=== PATIENT | male | born 1995 | race Caucasian/White ===

== ENCOUNTER → 2020-04-21 15:19 | Outpatient (BNVA) | payer OTHER, SELFPAY | PROVIDERS: Visit Provider Nurse Practitioner | DX: N39.0 Urinary tract infection, site not specified (principal); R30.0 Dysuria; Z20.2 Contact with and (suspected) exposure to infections with a predominantly sexual mode of transmission | CPT/HCPCS: 81000; 87086; 87491; 87591 ==

== ENCOUNTER → 2020-07-14 13:44 | Outpatient (BNVA) | payer OTHER, SELFPAY | PROVIDERS: Visit Provider Emergency Medicine | DX: Z20.2 Contact with and (suspected) exposure to infections with a predominantly sexual mode of transmission (principal); A74.9 Chlamydial infection, unspecified; R30.0 Dysuria | CPT/HCPCS: 81000; 87086 ==

== ENCOUNTER 2021-02-02 13:35 | Outpatient (CLI) | payer OTHER, SELFPAY ==
--- NOTE | 2021-02-02 13:48 | XRR_ITS ---
PROCEDURE INFORMATION: Exam: XR Right Foot Exam date and time: 02/02/2021 1:49 PM Age: 26 years old Clinical indication: Injury or trauma; Other: Dropped wash machine on it; Blunt trauma; Right; Patient HX: PT dropped wash machine on foot, no surgeries, no cancer, no smoking; Additional info: Right foot pain TECHNIQUE: Imaging protocol: XR Right foot. Views: 3 or more views. COMPARISON: No relevant prior studies available. FINDINGS: Bones/joints: No fracture or dislocation. Soft tissues: There is mild prominence of the forefoot soft tissues. XR/XR foot RT min 3V* [id number] IMPRESSION: No acute osseous injury.
== END 2021-02-02 13:36 | disposition home or self-care (01) ==
PROVIDERS: Visit Provider Nurse Practitioner Family
DX: M79.671 Pain in right foot (principal)
CPT/HCPCS: 73630

== ENCOUNTER 2021-06-08 13:52 | Outpatient (CLI) | payer OTHER, SELFPAY ==
--- NOTE | 2021-06-08 14:02 | XR_ITS ---
WS: [id number] Portable AP and lateral upright chest, 06/08/2021 Clinical Data: COVID Comparison: Portable chest, 11/26/2018. Findings: There is minimal patchy opacity in the right middle lobe which may represent acute pneumoni a. The left lung is clear. The heart is normal. No nodules, masses or effusions are seen. The pulmona ry vascularity is not increased. There is a slight dextroscoliosis. XR/XR chest 2V* [id number] Impression: Minimal patchy right middle lobe opacity which could represent acute pneumonia.
== END 2021-06-08 13:53 | disposition home or self-care (01) ==
LOC: RAD 13:57
PROVIDERS: PCP Nurse Practitioner Family; Visit Provider Nurse Practitioner Family
DX: R05.9 Cough, unspecified (principal); U07.1 COVID-19
CPT/HCPCS: 71046

== ENCOUNTER 2022-01-13 23:24 | Emergency (ER) | payer OTHER, SELFPAY ==
--- NOTE | 2022-01-13 23:26 | XRR_ITS ---
PROCEDURE INFORMATION: Exam: XR Right Hand Exam date and time: 01/13/2022 11:32 PM Age: 26 years old Clinical indication: Injury or trauma; Blunt trauma (contusions or hematomas) and crushing; Right; Patient HX: Changing rotors on vehicle and it slipped from [place] and rotor landed on patients arm. C/O numbness to hand with laceration to posterior surface around carpal region. C/O pain from elbow radiating down to wrist. TECHNIQUE: Imaging protocol: XR Right hand. Views: 3 or more views. COMPARISON: CR Finger RIGHT [id number] 04/07/2016 4:59 PM FINDINGS: Bones/joints: The alignment of the joints is anatomic and the joint spaces are maintained. There is no evidence of acute fracture. Soft tissues: No radiopaque foreign bodies are identified. There is no air in the soft tissues. XR/XR hand RT min 3V* [id number] IMPRESSION: Unremarkable radiographic appearance of the right hand.
[2022-01-13 23:27] VITALS: BMI 45.4
[2022-01-13 23:33] VITALS: BP 154/95; PULSE 83; RESP 18; O2SAT 98
--- NOTE | 2022-01-13 23:38 | XRR_ITS ---
PROCEDURE INFORMATION: Exam: XR Right Forearm Exam date and time: 01/13/2022 11:38 PM Age: 26 years old Clinical indication: Injury or trauma; Blunt trauma (contusions or hematomas) and crushing; Arm, upper; Right; Patient HX: Changing rotors on vehicle and it slipped from [place] and rotor landed on patients arm. C/O numbness to hand with laceration to posterior surface around carpal region. C/O pain from elbow radiating down to wrist. TECHNIQUE: Imaging protocol: XR Right forearm. Views: 2 views. COMPARISON: CR XR hand RT min 3V* [id number] 01/13/2022 11:32 PM FINDINGS: Bones/joints: The radius and ulna maintain anatomic alignment at the wrist and elbow joints. No acute fracture is identified. There are no blastic or osseous destructive lesions. Soft tissues: There are no radiopaque foreign bodies. XR/XR forearm RT 2V [id number] IMPRESSION: Unremarkable radiographic appearance of the right forearm.
[2022-01-13] MEDS: HYDROcodone-acetaminophen 5-325 mg Tablet 1 TAB PO (23:44)
[2022-01-13] MEDS: tetanus-dipt-pertussis 0.5 mL SDV IM (23:45)
[2022-01-14 00:03] VITALS: BP 146/93; PULSE 80; RESP 18
--- NOTE | 2022-01-14 00:06 | W.ED.EXTPRO ---
HPI - Extremity Problem General: Chief complaint: Extremity Injury, Upper Stated complaint: injured R hand Time Seen by Provider: 01/13/22 23:26 Source: patient Mode of arrival: ambulatory Limitations: no limitations History of Present Illness: 26-year-old male who states that he was working on a truck and it fell off hydraulics onto his left arm he does have a small laceration to left forearm states he has pain that he rates at 5 out of 10 he states that he feels like he cannot extend his wrist or extend his fingers on that arm. 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 truck Associated symptoms: Deny chest pain, fever(s) or rash Review of Systems Const: Denies: fever(s), chills, body aches or change in appetite Eyes: Denies: blurry vision or eye discomfort ENMT: Denies: throat pain or dental pain Card: Denies: chest pain Resp: Denies: dyspnea GI: Denies: abdominal pain, nausea, vomiting or diarrhea : Denies: dysuria Musc: Reports: extremity pain Skin/Breast: Denies: rash Neuro: Denies: headache(s) Psych: Denies: depression Tj/Lymph: Denies: easy bruising All/Imm: Denies: urticaria PFSH ED PFSH: Medical History (Updated 01/14/22 @ 00:22 by David Johnson MD) No pertinent past medical history Social History Smoking and tobacco status: never smoked Second hand smoke exposure: No Alcohol intake: never Desire information about alcohol rehabilitation?: No Desire information about substance/drug rehabilitation?: No Physical Exam Const: COMMON NORMALS: no acute distress, patient oriented x3 and healthy appearing HENMT: COMMON NORMALS: normocephalic and atraumatic HEAD & SCALP: normocephalic and atraumatic Eye: COMMON NORMALS: Equal, round and reactive pupils present and EOMs intact bilaterally PUPIL: Yes Equal, round and reactive pupils present Neck/C-Spine: COMMON NORMALS: full ROM and supple Chest: COMMONS NORMALS: normal inspection of the chest and normal palpation of entire chest wall Resp: COMMON NORMALS: normal respiratory effort, No retractions, No use of accessory muscles and clear to auscultation bilaterally AUSCULTATION: clear to auscultation bilaterally Cardio: COMMON NORMALS: regular rate, regular rhythm and No murmurs present (Cardio) RATE: regular rate RHYTHM: regular rhythm GI: COMMON NORMALS: Normal to inspection, nondistended, normoactive bowel sounds present, Soft to palpation, non-tender and no masses PALPATION: Yes Soft to palpation Extremity: COMMON NORMALS: normal to inspection and full ROM Neuro: COMMON NORMALS: patient oriented x3, moves all extremities and no focal motor deficits Psych: COMMON NORMALS: mental status grossly normal, Normal thought process present and cooperative THOUGHT PROCESS: Normal thought process present Skin: COMMON NORMALS: no rashes or lesions noted and no wounds GENERAL SKIN EXAM: no rashes or lesions noted Procedures Laceration Laceration 1: Site: upper extremity Side (If applicable): right Size (cm): 2 Description: linear Depth: simple, single layer Local Anesthetic: lidocaine 1% Amount of anesthesia used (mL): 8 Pre-repair: wound explored and irrigated extensively Skin layer closed with: nylon Size (cm): 4-0 Number of sutures: 3 Technique: simple, interrupted Course Vital Signs: Vital signs: Vital Signs Pulse Rate 80 01/14/22 00:03 Respiratory Rate 18 01/14/22 00:03 Blood Pressure 118/76 01/14/22 00:42 Pulse Oximetry 98 01/13/22 23:33 MDM - Extremity (Nontraumatic) Medical Decision Making Patient presents here with a laceration to his left forearm after a rotor of a truck fell on it. X-ray shows no fracture did clean the wound thoroughly suture did no signs of tendon involvement laceration was superficial he states that he cannot extend his hand or fingers we will get him follow-up with orthopedics for further evaluation of this Lab Data Radiology Impressions Hand X-Ray 01/13/22 23:26 IMPRESSION: Unremarkable radiographic appearance of the right hand. Discharge Plan Discharge Patient Disposition: Home Clinical Impression: Laceration Forearm injury Qualifiers: Encounter type: initial encounter Laterality: right Qualified Code(s): S59.911A - Unspecified injury of right forearm, initial encounter Condition: Stable Prescriptions: New Naprosyn 500 mg tablet 500 mg PO BID PRN (Reason: pain) Qty: 20 0RF Discharge Orders: Discharge ED (Routine); Ordered 01/14/22 Ordered By: David Johnson Referrals: Lainey Kunz FNP [Primary Care Provider] - Nikolas Black MD [Physician] - 1-3 days Discharge Diet: Advance as tolerated Discharge Activity: Resume usual activity Patient Instructions: Care For Your Stitches (ED), Laceration (ED) Activity Restrictions/Additional Instructions: suture removal in 10 days Coding Level of Care Code ED Reports Analysis Manager for Chg Fwd Exam Comprehensive
[2022-01-14 00:42] VITALS: BP 118/76
--- NOTE | 2022-01-14 13:15 | DCPLANNER ---
Addendum entered by Mae Riley 01/21/22 15:27: Patient had a follow up appointment scheduled with ortho on 01.15.22 - patient did attend appointment. Original Note: system safety manager had message to schedule a follow up appointment for patient with ortho. system safety manager sent patients information to the front office staff at ortho. Patients information will be printed and reviewed. Clinic will call patient with appointment information.
== END 2022-01-14 00:45 | disposition home or self-care (01) ==
PROVIDERS: Emergency Provider Emergency Medicine; PCP Nurse Practitioner Family
DX: S51.812A Laceration without foreign body of left forearm, initial encounter (principal); W22.8XXA Striking against or struck by other objects, initial encounter; Z23 Encounter for immunization
CPT/HCPCS: 12001; 73090; 73130; 90471; 90715; 99283

== ENCOUNTER 2022-01-15 12:21 | Outpatient (CLI) | payer OTHER, SELFPAY | END 2022-01-15 12:22 | disposition home or self-care (01) | LOC: SPT 12:22 | PROVIDERS: PCP Nurse Practitioner Family; Visit Provider Nurse Practitioner Family | DX: Z46.89 Encounter for fitting and adjustment of other specified devices (principal); S63.501S Unspecified sprain of right wrist, sequela; X58.XXXS Exposure to other specified factors, sequela | CPT/HCPCS: 97760; L3908 ==

== ENCOUNTER 2022-01-19 18:23 | Emergency (ER) | payer OTHER, SELFPAY ==
[2022-01-19] VITALS (9 sets, daily range): BP systolic 112–140; BP diastolic 69–80; PULSE 68–82; RESP 16; TEMP 37.1; O2SAT 98–100; BMI 28.0
--- NOTE | 2022-01-19 18:56 | W.ED.MALEGU ---
HPI - Male Genitourinary General: Chief complaint: Urogenital-Male Stated complaint: Pain Can not pee Time Seen by Provider: 01/19/22 18:56 History of Present Illness: Mr. Hartman is a 26-year-old gentleman without significant past medical history who presents to the emergency department due to difficulty voiding. He reports onset of symptoms approximately 10 AM this morning. He also reports a longstanding history of decreased urinary stream however today specifically he has had nearly complete inability to void. He describes thick urine with slow stream that is progressively worsened. He now has associated abdominal suprapubic fullness and pain in the groin. Intensity symptoms is moderate to severe. Worse with attempting to urinate. He does feel the need to strain. No other specific changes in health, exacerbating, or alleviating factors identified. Onset (ago): hour(s) Duration: constant and progressively worsening Location: abdomen Severity: moderate Quality: aching Review of Systems General: Reports: 10 or more systems reviewed and unremarkable except in HPI and below PFS ED PFSH: Medical History No pertinent past medical history Social History Smoking and tobacco status: never smoked Second hand smoke exposure: No Alcohol intake: never Desire information about alcohol rehabilitation?: No Desire information about substance/drug rehabilitation?: No Physical Exam Const: COMMON NORMALS: alert GENERAL APPEARANCE: cooperative and well developed HENMT: COMMON NORMALS: normocephalic and atraumatic HEAD & SCALP: normocephalic and atraumatic Eye: COMMON NORMALS: conjunctivae normal CONJUNCTIVA: Yes conjunctivae normal SCLERA: sclerae normal Neck/C-Spine: COMMON NORMALS: supple GENERAL: Yes trachea midline Resp: COMMON NORMALS: normal respiratory effort EFFORT & INSPECTION: Yes able to speak in complete sentences Cardio: COMMON NORMALS: regular rate and regular rhythm RATE: regular rate RHYTHM: regular rhythm GI: COMMON NORMALS: Soft to palpation PALPATION: Yes Soft to palpation, Yes Tenderness to palpation present (GI) (Suprapubic), No Guarding due to palpation present (GI) and No Rigid due to palpation PERCUSSION: normal to percussion : COMMON NORMALS: Yes Testes normal PENIS: normal penis Extremity: GENERAL: Yes normal exam except as noted and No edema Neuro: COMMON NORMALS: moves all extremities SENSORIUM/ORIENTATION: Yes alert and No Orientation impaired Psych: COMMON NORMALS: mental status grossly normal and Normal thought process present THOUGHT PROCESS: Normal thought process present Course ED course: - Patient was seen and evaluated by me at bedside - Patient placed on cardiac monitors, IV access obtained - Initial evaluation notable for exam as above - Labs personally interpreted by me -Analgesia given - Labs notable for no leukocytosis, mild hemoconcentration. Electrolyte panel unremarkable, creatinine is preserved. Urinalysis not concerning for urinary tract infection. - Imaging notable for mild hydronephrosis bilaterally and prominence of urethral outlet from the bladder of unclear significance - Discussed with urology, patient can either have catheter placed or trial of medication with strict return precautions. - Upon serial reexamination after treatment the patient was improved - Based on patient history, evaluation, and testing as interpreted the most likely cause of the patient's condition is urinary retention of unclear etiology - The results of ED evaluation were discussed with the patient including العلي catheter versus trial of medication. Patient does not want العلي catheter for discharge and expresses desire for medication trial. First dose given here. I discussed prescriptions and/or symptomatic cares (if applicable) including appropriate and responsible use, followup plan, and strict return precautions. The patient verbalized understanding and felt safe for discharge. - Patient discharged in satisfactory condition. Note: Click bubbles or prepopulated dougherty in note writing are used for assistance with data collection and billing and are inherently more limited than narrative and other text portions of this note. Please use narrative for additional clinical history and defer to narrative/free test for any case of contradictory information. If information appears in only free text or click bubble it should be considered present or absent as reported. Please contact note marketing copywriter for clarifications of clinical information or contradictory information. MDM is a brief summary, contradictory or erroneous seeming information should be clarified and full note should be reviewed. Vital Signs: Vital signs: Vital Signs Temperature 98.7 F 01/19/22 18:53 Pulse Rate 71 01/19/22 22:42 Respiratory Rate 16 01/19/22 22:42 Blood Pressure 115/72 01/19/22 22:42 Pulse Oximetry 99 01/19/22 22:42 MDM - Male Medical Decision Making 26 yo male seen and evaluated for urinary retention. No acute etiology identified on lab or urine studies. Did void small amount in ED. Estimated bladder volume 400 cc. Mild hydro on ultrasound. Discussed with urology. Offered trial of medication with strict return precautions vs العلي placement. Patient wants to try medications first. Will return if worsening for العلي placement. Medical Records I reviewed the patient's medical records. Lab Data I reviewed the patient's lab results. : 01/19/22 19:40 01/19/22 19:40 Radiology Impressions Renal Ultrasound 01/19/22 19:30 IMPRESSION: 1. Several bilateral punctate nonobstructing renal calyceal stones suspected. 2. Very mild hydronephrosis suspected bilaterally without obstructing lesion. 3. Inferior aspect of the urinary bladder wall demonstrates an apparent prominent opening to the urethra of uncertain significance. Laboratory Results WBC 5.5 10^3/uL (4.0-10.0) 01/19/22 19:40 RBC 5.48 10^6/uL (4.1-5.3) H 01/19/22 19:40 Hgb 17.3 g/dL (11.7-16.6) H 01/19/22 19:40 Hct 50.4 % (42.0-52.0) 01/19/22 19:40 MCV 92.0 fl (80-94) 01/19/22 19:40 MCH 31.6 pg (28.0-34.0) 01/19/22 19:40 MCHC 34.3 g/dL (30.0-36.0) 01/19/22 19:40 RDW 11.9 % (12.1-15.1) L 01/19/22 19:40 Plt Count 336 10^3/cmm (130-400) 01/19/22 19:40 MPV 9.9 fL (7.4-10.4) 01/19/22 19:40 Neut % (Auto) 55.3 % 01/19/22 19:40 Lymph % (Auto) 31.0 % 01/19/22 19:40 Dickenson % (Auto) 8.0 % 01/19/22 19:40 Eos % (Auto) 4.4 % 01/19/22 19:40 Baso % (Auto) 1.3 % 01/19/22 19:40 Neut # (Auto) 3.03 10^3/uL (1.8-7.7) 01/19/22 19:40 Lymph # (Auto) 1.7 10^3/uL (0.8-4.8) 01/19/22 19:40 Dickenson # (Auto) 0.4 10^3/uL (0.2-0.9) 01/19/22 19:40 Eos # (Auto) 0.2 10^3/uL (0.0-0.8) 01/19/22 19:40 Baso # (Auto) 0.1 10^3/uL (0.0-0.1) 01/19/22 19:40 Nucleated RBC % (auto) 0 % 01/19/22 19:40 Nucleated RBCs # 0.0 /100WBC 01/19/22 19:40 Sodium 137 mmol/L (136-145) 01/19/22 19:40 Potassium 4.1 mmol/L (3.5-5.1) 01/19/22 19:40 Chloride 101 mmol/L (98-107) 01/19/22 19:40 Carbon Dioxide 27 mmol/L (22-29) 01/19/22 19:40 Anion Gap 13.1 (5-19) 01/19/22 19:40 BUN 10 mg/dL (6-20) 01/19/22 19:40 Creatinine 0.8 mg/dL (0.7-1.2) 01/19/22 19:40 GFR Calculation 118.8 mL/min (90-130) 01/19/22 19:40 Glucose 81 mg/dL (65-115) 01/19/22 19:40 Calculated Osmolality 282 mOsm/kg (285-295) L 01/19/22 19:40 Calcium 9.4 mg/dL (8.5-10.5) 01/19/22 19:40 Urine Color Yellow (Yellow) 01/19/22 19:34 Urine Appearance Clear (CLEAR) 01/19/22:34 Urine pH 5 (5-7) 01/19/22:34 Ur Specific Holladay 1.020 (1.005-1.030) 01/19/22 19:34 Urine Protein Trace (Negative) 01/19/22:34 Urine Glucose (UA) Norm (Normal) 01/19/22:34 Urine Ketones Negative (Negative) 05/17/22 19:34 Urine Blood Neg (Negative) 01/19/22 19:34 Urine Nitrate Negative (Negative) 01/19/22 19:34 Urine Bilirubin Neg (Negative) 01/19/22 19:34 Urine Urobilinogen Norm mg/dL (Negative) 01/19/22 19:34 Ur Leukocyte Esterase Negative (Negative) 01/19/22 19:34 Discharge Plan Discharge Patient Disposition: Home Clinical Impression: Acute urinary retention Condition: Stable Prescriptions: New Pyridium 100 mg tablet 100 mg PO Q8H PRN (Reason: bladder spasms) Qty: 6 0RF Flomax 0.4 mg capsule 0.4 mg PO DAILY Qty: 20 0RF oxycodone 5 mg tablet 5 mg PO Q6H PRN (Reason: pain) Qty: 8 0RF No Action (DME) Cock Up Splint See Rx Instructions .Route .MEDSUPPLY Qty: 1 0RF Rx Instructions: As directed naproxen [Naprosyn] 500 mg tablet 500 mg PO BID PRN (Reason: pain) Qty: 20 0RF Discharge Orders: Discharge ED (Routine); Ordered 01/19/22 Ordered By: Carlos Guthrie Referrals: Lainey Kunz, INSTRUCTIONAL MATERIALS DIRECTOR [Primary Care Provider] - Discharge Diet: Usual diet Discharge Activity: Increase activity as tolerated Patient Instructions: Urinary Retention in Men (ED), Opioid Safety Activity Restrictions/Additional Instructions: Thank you for visiting the emergency department. You were seen and evaluated for difficulty urinating. The exact cause of your symptoms is unclear. As discussed, there are 2 options for treatment, you are electing to proceed with medication. Please return to the emergency department if you are unable to urinate over a 24-hour period, uncontrolled pain, back pain, fevers. If you do not improve with medication we will likely have to place a catheter for urology follow-up. Please follow-up with your primary care provider. Return to the emergency department for worsening symptoms or anything else that you are concerned about and feel needs emergency department evaluation. Coding Level of Care Code ED Claim Analyst for Dana Arizmendi Exam Comprehensive
--- NOTE | 2022-01-19 19:30 | USR_ITS ---
PROCEDURE INFORMATION: Exam: US Retroperitoneal; Complete; Kidneys and Bladder Exam date and time: 01/19/2022 8:42 PM Age: 26 years old Clinical indication: Other: Inability to urinate; Abdominal pain; Generalized; Additional info: Urinary retention, eval hydro/obvious masses/obstruction TECHNIQUE: Imaging protocol: Real-time ultrasound of the retroperitoneum with image documentation. Complete exam focused on the kidneys and bladder. COMPARISON: CT abdomen pelvis w con* [id number] 01/21/2017 12:22 AM FINDINGS: Right kidney: Several bilateral punctate nonobstructing renal calyceal stones suspected. Very mild hydronephrosis suspected bilaterally without obstructing lesion. Left kidney: See above Urinary bladder: Inferior aspect of the urinary bladder wall demonstrates an apparent prominent opening to the urethra of uncertain significance. US/US renal BI with PV bladder IMPRESSION: 1. Several bilateral punctate nonobstructing renal calyceal stones suspected. 2. Very mild hydronephrosis suspected bilaterally without obstructing lesion. 3. Inferior aspect of the urinary bladder wall demonstrates an apparent prominent opening to the urethra of uncertain significance.
[2022-01-19 19:48] LABS: Add Urine Microscopic? NO; Charge for UA Resulting for Rev
[2022-01-19 19:53] LABS: Basophils # 0.1 10^3/uL (0.0-0.1); Basophils % 1.3 %; Eosinophils # 0.2 10^3/uL (0.0-0.8); Eosinophils % 4.4 %; Hematocrit 50.4 % (42.0-52.0); Hemoglobin 17.3 g/dL (11.7-16.6); Lymphocytes # 1.7 10^3/uL (0.8-4.8); Mean Corpuscular HGB Conc 34.3 g/dL (30.0-36.0); Mean Corpuscular Hemoglobin 31.6 pg (28.0-34.0); Mean Platelet Volume 9.9 fL (7.4-10.4); Monocytes # 0.4 10^3/uL (0.2-0.9); Neutrophils # 3.03 10^3/uL (1.8-7.7); Neutrophils % 55.3 %; Nucleated Red Blood Cells % 0 %; Platelet Count 336 10^3/cmm (130-400); Red Blood Count 5.48 10^6/uL (4.1-5.3); Red Cell Distribution Width 11.9 % (12.1-15.1); White Blood Count 5.5 10^3/uL (4.0-10.0)
[2022-01-19] MEDS: morphine 4 mg/mL SDV 1 mL IVP (19:59)
[2022-01-19 20:07] LABS: Urine Appearance Clear (CLEAR); Urine Color Yellow (Yellow); pH Urine 5 (5-7)
[2022-01-19 20:08] LABS: Bilirubin Urine Neg (Negative); Blood Urine Neg (Negative); Glucose Urine UA Norm (Normal); Ketones Urine Negative (Negative); Leukocyte Esterase Urine Negative (Negative); Nitrate Urine Negative (Negative); Protein Urine Trace (Negative); Urobilinogen Urine Norm (Negative)
[2022-01-19 20:10] LABS: Blood Urea Nitrogen 10 mg/dL (6-20); Calcium 9.4 mg/dL (8.5-10.5); Carbon Dioxide 27 mmol/L (22-29); Chloride 101 mmol/L (98-107); Glomerular Filtration Rate 118.8 mL/min (90-130); Glucose 81 mg/dL (65-115); Osmolality Calculated 282 mOsm/kg (285-295); Sodium 137 mmol/L (136-145)
[2022-01-19 20:17] LABS: Anion Gap 13.1 (5-19); Potassium 4.1 mmol/L (3.5-5.1)
[2022-01-19] MEDS: phenazopyridine 100 mg Tablet PO (22:35)
[2022-01-19] MEDS: tamsulosin 0.4 mg Capsule PO (22:35)
[2022-01-19] MEDS: ketorolac 30 mg/mL INJ 15 MG IVP (22:35)
[2022-01-19] MEDS: oxyCODONE 5 mg IR Tab/Cap PO (22:36)
== END 2022-01-19 22:45 | disposition home or self-care (01) ==
PROVIDERS: Emergency Medicine; Emergency Provider Emergency Medicine; PCP Nurse Practitioner Family
DX: R33.9 Retention of urine, unspecified (principal)
CPT/HCPCS: 76770; 76857; 80048; 81003; 85025; 96374; 96375; 99284; J1885; J2270

== ENCOUNTER 2022-01-20 14:32 | Emergency (ER) | payer OTHER, SELFPAY ==
[2022-01-20] VITALS (9 sets, daily range): BP systolic 104–126; BP diastolic 66–81; PULSE 78–122; RESP 18–20; TEMP 36.8; O2SAT 94–98; BMI 28.0
--- NOTE | 2022-01-20 16:25 | ED_ITS ---
Documented by User: Brenden Woodard DO 01/20/22 18:06 HPI - Male Genitourinary General: Chief complaint: Urogenital-Male Stated complaint: Unable to urinate Time Seen by Provider: 01/20/22 15:48 Source: patient Mode of arrival: ambulatory Limitations: no limitations History of Present Illness: 26-year-old male presents emergency room with inability to urinate. He states he not been able to urinate for the last 18 hours. He was seen overnight last night and started on tamsulosin and Pyridium. Patient has been having dysuria with penile discharge for several days prior. He denies hematuria. No vomiting or diarrhea. He is extremely uncomfortable at this time with left flank pain. MD Complaint: dysuria Onset (ago): day(s) Duration: constant Location: abdomen Severity: severe Quality: aching Relieving factors: none Exacerbating factors: none Associated symptoms: Reports dysuria, nausea and urinary retention; Deny discharge, fevers/chills, hematuria, rash, swelling, urinary incontinence or vomiting Review of Systems GI: Reports: nausea; Denies: vomiting : Reports: dysuria; Denies: urinary incontinence or hematuria [facility] PFSH: Medical History No pertinent past medical history Social History Smoking and tobacco status: never smoked Second hand smoke exposure: No Alcohol intake: never Desire information about alcohol rehabilitation?: No Desire information about substance/drug rehabilitation?: No Physical Exam Const: COMMON NORMALS: no acute distress GENERAL APPEARANCE: cooperative and comfortable ORIENTATION/CONSCIOUSNESS: Yes awake, Yes oriented to person, Yes oriented to place and Yes oriented to time HENMT: COMMON NORMALS: normocephalic and atraumatic HEAD & SCALP: normocephalic and atraumatic Neck/C-Spine: COMMON NORMALS: no JVD Resp: COMMON NORMALS: normal respiratory effort, No retractions, No use of accessory muscles and clear to auscultation bilaterally AUSCULTATION: clear to auscultation bilaterally Cardio: COMMON NORMALS: no JVD, regular rate, regular rhythm and No murmurs present (Cardio) RATE: regular rate RHYTHM: regular rhythm GI: COMMON NORMALS: No hepatosplenomegaly present AUSCULTATION: Yes normoactive bowel sounds PALPATION: Yes Tenderness to palpation present (GI) (Suprapubic), No Guarding due to palpation present (GI) and Yes No h epatosplenomegaly present : COMMON NORMALS: Yes no CVA tenderness BLADDER/KIDNEY EXAM: Yes no CVA tenderness Back/Pelvis: COMMON NORMALS: no CVA tenderness Extremity: COMMON NORMALS: normal to inspection, capillary refill normal, no clubbing, cyanosis or edema, no calf tenderness and no pedal edema Neuro: SENSORIUM/ORIENTATION: Yes oriented to person, Yes oriented to place and Yes oriented to time Skin: COMMON NORMALS: no rashes or lesions noted GENERAL SKIN EXAM: no ra shes or lesions noted Course Vital Signs: Vital signs: Vital Signs Temperature 98.2 F 01/20/22 14:51 Pulse Rate 116 H 01/21/22 00:30 Respiratory Rate 18 01/21/22 00:30 Blood Pressure 128/70 01/21/22 00:30 Pulse Oximetry 96 01/21/22 00:30 [facility] - Male Medical Decision Making Care signed out to Dr. Guthrie at change of shift. See final notes for diagnosis and disposition. Medical Records I reviewed the patient's medical records. Lab Data I reviewed the patient's lab results. : 01/20/22 16:45 01/20/22 16:45 Radiology Impressions Abdomen/Pelvis CT 01/20/22 17:13 IMPRESSION: 1. No urinary calculi or hydronephrosis. Minimal bladder wall thickening. See discussion above. Somewhat limited exam due to lack of contrast. 2. 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 See discussion above. Laboratory Results WBC 5.6 10^3/uL (4.0-10.0) 01/20/22 16:45 RBC 5.42 10^6/uL (4.1-5.3) H 01/20/22 16:45 Hgb 17.0 g/dL (11.7-16.6) H 01/20/22 16:45 Hct 49.1 % (42.0-52.0) 01/20/22 16:45 MCV 90.6 fl (80-94) 01/20/22 16:45 MCH 31.4 pg (28.0-34.0) 01/20/22 16:45 MCHC 34.6 g/dL (30.0-36.0) 01/20/22 16:45 RDW 11.9 % (12.1-15.1) L 01/20/22 16:45 Plt Count 313 10^3/cmm (130-400) 01/20/22 16:45 MPV 10.0 fL (7.4-10.4) 01/20/22 16:45 Neut % (Auto) 54.7 % 01/20/22 16:45 Lymph % (Auto) 32.8 % 01/20/22 16:45 Vilas % (Auto) 8.6 % 01/20/22 16:45 Eos % (Auto) 2.5 % 01/20/22 16:45 Baso % (Auto) 1.2 % 01/20/22 16:45 Neut # (Auto) 3.07 10^3/uL (1.8-7.7) 01/20/22 16:45 Lymph # (Auto) 1.8 10^3/uL (0.8-4.8) 01/20/22 16:45 Vilas # (Auto) 0.5 10^3/uL (0.2-0.9) 01/20/22 16:45 Eos # (Auto) 0.1 10^3/uL (0.0-0.8) 01/20/22 16:45 Baso # (Auto) 0.1 10^3/uL (0.0-0.1) 01/20/22 16:45 Nucleated RBC % (auto) 0 % 01/20/22 16:45 Nucleated RBCs # 0.0 /100WBC 01/20/22 16:45 Sodium 139 mmol/L (136-145) 01/20/22 16:45 Potassium 3.9 mmol/L (3.5-5.1) 01/20/22 16:45 Chloride 101 mmol/L (98-107) 01/20/22 16:45 Carbon Dioxide 28 mmol/L (22-29) 01/20/22 16:45 Anion Gap 13.9 (5-19) 01/20/22 16:45 BUN 11 mg/dL (6-20) 01/20/22 16:45 Creatinine 0.9 mg/dL (0.7-1.2) 01/20/22 16:45 GFR Calculation 103.7 mL/min (90-130) 01/20/22 16:45 Glucose 100 mg/dL (65-115) 01/20/22 16:45 Calculated Osmolality 287 mOsm/kg (285-295) 01/20/22 16:45 Calcium 8.8 mg/dL (8.5-10.5) 01/20/22 16:45 Total Bilirubin 1.0 mg/dL (0.15-1.2) 01/20/22 16:45 AST 17 U/L (0-40) 01/20/22 16:45 ALT 29 U/L (0-41) 01/20/22 16:45 Alkaline Phosphatase 78 IU/L (40-130) 01/20/22 16:45 Total Protein 6.6 g/dL (6.6-8.7) 01/20/22 16:45 Albumin 4.4 g/dL (3.5-5.2) 01/20/22 16:45 Globulin 2.2 g/dL (1.3-4.6) 01/20/22 16:45 Urine Color Maries (Yellow) 01/20/22 16:55 Urine Appearance Clear (CLEAR) 01/20/22 16:55 Urine pH 5 (5-7) 01/20/22 16:55 Ur Specific [place] 1.020 (1.005-1.030) 01/20/22 16:55 Urine Protein 2+ (Negative) H 01/20/22 16:55 Urine Glucose (UA) Norm (Normal) 01/20/22 16:55 Urine Ketones Negative (Negative) 01/20/22 16:55 Urine Blood 3+ (Negative) H 01/20/22 16:55 Urine Nitrate Positive (Negative) H 01/20/22 16:55 Urine Bilirubin 2+ (Negative) H 01/20/22 16:55 Urine Urobilinogen 1+ mg/dL (Negative) H 01/20/22 16:55 Ur Leukocyte Esterase Negative (Negative) 01/20/22 16:55 Urine RBC >100 /hpf (0-2) H 01/20/22 16:55 Urine WBC 5-10 /hpf (0-5) H 01/20/22 16:55 Ur Squamous Epith Cells 0-4 /hpf (0-5) H 01/20/22 16:55 Amorphous Sediment Not Reportable 01/20/22 16:55 Urine Bacteria Trace /hpf (NONE) 01/20/22 16:55 Urine Mucus 2+ /hpf 01/20/22 16:55 Discharge Plan Discharge Patient Disposition: Xfer Short-Term Hosp Clinical Impression: Acute urinary retention Condition: Stable Prescriptions: No Action (DME) Cock Up Splint See Rx Instructions .Route .MEDSUPPLY Qty: 1 0RF Rx Instructions: As directed naproxen [Naprosyn] 500 mg tablet 500 mg PO BID PRN (Reason: pain) Qty: 20 0RF Pyridium 100 mg tablet 100 mg PO Q8H PRN (Reason: bladder spasms) Qty: 6 0RF Flomax 0.4 mg capsule 0.4 mg PO DAILY Qty: 20 0RF oxycodone 5 mg tablet 5 mg PO Q6H PRN (Reason: pain) Qty: 8 0RF Referrals: Lainey Kunz, [employer]CEIVING [employer]ERK [Primary Care Provider] - Sign Out Sign Out Data: Patient Sign Out occurred on 01/20/22 at 18:24. Patient's care was discussed, and care was transferred from to Carlos Guthrie MD. Coding Level of Care Code ED Interpretative Dancer for Chg Fwd Exam Comprehensive Documented by User: Carlos Guthrie MD 01/24/22 05:07 HPI - Male Genitourinary General: Chief complaint: Urogenital-Male Stated complaint: Unable to urinate Time Seen by Provider: 01/20/22 15:48 PFSH ED PFSH: Medical History No pertinent past medical history Social History Smoking and tobacco status: never smoked Second hand smoke exposure: No Alcohol intake: never Desire information about alcohol rehabilitation?: No Desire information about substance/drug rehabilitation?: No Course Vital Signs: Vital signs: Vital Signs Temperature 98.2 F 01/20/22 14:51 Pulse Rate 116 H 01/21/22 00:30 Respiratory Rate 18 01/21/22 00:30 Blood Pressure 128/70 01/21/22 00:30 Pulse Oximetry 96 01/21/22 00:30 MDM - Male Medical Decision Making Care signed out to Dr. Guthrie at change of shift. See final notes for diagnosis and disposition. Patient care handoff received from Dr. Woodard pending completion of ED evaluation. Overall labs similar to prior day. Urinalysis now showing small amount of white blood cells though given trauma related to Vasquez catheter attempts I do not believe that this is reflective of true infection. Additionally GC and Chlamydia negative. Attempted multiple times to pass catheter though no success. Given essentially greater than 24 hours of only minimal urine output with increasing discomfort and volume and bladder the patient requires urgent urologic evaluation with primary consideration for urethral stricture. We do not currently have urology on-call and therefore patient requires transfer. Discussed with Dr. aButista of the urology service in [place] and he was agreeable that the patient does require transfer. Patient discussed with Dr. Ivy of the hospitalist service who agreed to accept the patient as transfer. Patient transferred via EMS in satisfactory condition. Carlos Guthrie MD Emergency Medicine Lab Data : 01/20/22 16:45 01/20/22 16:45 Radiology Impressions Abdomen/Pelvis CT 01/20/22 17:13 IMPRESSION: 1. No urinary calculi or hydronephrosis. Minimal bladder wall thickening. See discussion above. Somewhat limited exam due to lack of contrast. 2. 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 See discussion above. Laboratory Results WBC 5.6 10^3/uL (4.0-10.0) 01/20/22 16:45 RBC 5.42 10^6/uL (4.1-5.3) H 01/20/22 16:45 Hgb 17.0 g/dL (11.7-16.6) H 01/20/22 16:45 Hct 49.1 % (42.0-52.0) 01/20/22 16:45 MCV 90.6 fl (80-94) 01/20/22 16:45 MCH 31.4 pg (28.0-34.0) 01/20/22 16:45 MCHC 34.6 g/dL (30.0-36.0) 01/20/22 16:45 RDW 11.9 % (12.1-15.1) L 01/20/22 16:45 Plt Count 313 10^3/cmm (130-400) 01/20/22 16:45 MPV 10.0 fL (7.4-10.4) 01/20/22 16:45 Neut % (Auto) 54.7 % 01/20/22 16:45 Lymph % (Auto) 32.8 % 01/20/22 16:45 Vilas % (Auto) 8.6 % 01/20/22 16:45 Eos % (Auto) 2.5 % 01/20/22 16:45 Baso % (Auto) 1.2 % 01/20/22 16:45 Neut # (Auto) 3.07 10^3/uL (1.8-7.7) 01/20/22 16:45 Lymph # (Auto) 1.8 10^3/uL (0.8-4.8) 01/20/22 16:45 Vilas # (Auto) 0.5 10^3/uL (0.2-0.9) 01/20/22 16:45 Eos # (Auto) 0.1 10^3/uL (0.0-0.8) 01/20/22 16:45 Baso # (Auto) 0.1 10^3/uL (0.0-0.1) 01/20/22 16:45 Nucleated RBC % (auto) 0 % 01/20/22 16:45 Nucleated RBCs # 0.0 /100WBC 01/20/22 16:45 Sodium 139 mmol/L (136-145) 01/20/22 16:45 Potassium 3.9 mmol/L (3.5-5.1) 01/20/22 16:45 Chloride 101 mmol/L (98-107) 01/20/22 16:45 Carbon Dioxide 28 mmol/L (22-29) 01/20/22 16:45 Anion Gap 13.9 (5-19) 01/20/22 16:45 BUN 11 mg/dL (6-20) 01/20/22 16:45 Creatinine 0.9 mg/dL (0.7-1.2) 01/20/22 16:45 GFR Calculation 103.7 mL/min (90-130) 01/20/22 16:45 Glucose 100 mg/dL (65-115) 01/20/22 16:45 Calculated Osmolality 287 mOsm/kg (285-295) 01/20/22 16:45 Calcium 8.8 mg/dL (8.5-10.5) 01/20/22 16:45 Total Bilirubin 1.0 mg/dL (0.15-1.2) 01/20/22 16:45 AST 17 U/L (0-40) 01/20/22 16:45 ALT 29 U/L (0-41) 01/20/22 16:45 Alkaline Phosphatase 78 IU/L (40-130) 01/20/22 16:45 Total Protein 6.6 g/dL (6.6-8.7) 01/20/22 16:45 Albumin 4.4 g/dL (3.5-5.2) 01/20/22 16:45 Globulin 2.2 g/dL (1.3-4.6) 01/20/22 16:45 Urine Color Maries (Yellow) 01/20/22 16:55 Urine Appearance Clear (CLEAR) 01/20/22 16:55 Urine pH 5 (5-7) 01/20/22 16:55 Ur Specific [place] 1.020 (1.005-1.030) 01/20/22 16:55 Urine Protein 2+ (Negative) H 01/20/22 16:55 Urine Glucose (UA) Norm (Normal) 01/20/22 16:55 Urine Ketones Negative (Negative) 01/20/22 16: Urine Blood 3+ (Negative) H 01/20/22 16:55 Urine Nitrate Positive (Negative) H 01/20/22 16:55 Urine Bilirubin 2+ (Negative) H 01/20/22 16:55 Urine Urobilinogen 1+ mg/dL (Negative) H 01/20/22 16:55 Ur Leukocyte Esterase Negative (Negative) 01/20/22 16:55 Urine RBC >100 /hpf (0-2) H 01/20/22 16:55 Urine WBC 5-10 /hpf (0-5) H 01/20/22 16:55 Ur Squamous Epith Cells 0-4 /hpf (0-5) H 01/20/22 16:55 Amorphous Sediment Not Reportable 01/20/22 16:55 Urine Bacteria Trace /hpf (NONE) 01/20/22 16:55 Urine Mucus 2+ /hpf 01/20/22 16:55 Discharge Plan Discharge Patient Disposition: Xfer Short-Term Hosp Clinical Impression: Acute urinary retention Condition: Stable Prescriptions: No Action (DME) Cock Up Splint See Rx Instructions .Route .MEDSUPPLY Qty: 1 0RF Rx Instructions: As directed naproxen [Naprosyn] 500 mg tablet 500 mg PO BID PRN (Reason: pain) Qty: 20 0RF Pyridium 100 mg tablet 100 mg PO Q8H PRN (Reason: bladder spasms) Qty: 6 0RF Flomax 0.4 mg capsule 0.4 mg PO DAILY Qty: 20 0RF oxycodone 5 mg tablet 5 mg PO Q6H PRN (Reason: pain) Qty: 8 0RF Referrals: Lainey Kunz, [employer]CEIVING CLERK [Primary Care Provider] - Sign Out Sign Out Data: Patient Sign Out occurred on 01/20/22 at 18:24. Patient's care was discussed, and care was transferred from to Carlos Guthrie MD. Coding Level of Care Code ED Interpretative Dancer for Chg Fwd Exam Comprehensive
[2022-01-20 17:05] LABS: Basophils # 0.1 10^3/uL (0.0-0.1); Basophils % 1.2 %; Eosinophils # 0.1 10^3/uL (0.0-0.8); Eosinophils % 2.5 %; Hematocrit 49.1 % (42.0-52.0); Lymphocytes # 1.8 10^3/uL (0.8-4.8); Lymphocytes % 32.8 %; Mean Corpuscular HGB Conc 34.6 g/dL (30.0-36.0); Mean Corpuscular Hemoglobin 31.4 pg (28.0-34.0); Mean Corpuscular Volume 90.6 fl (80-94); Monocytes # 0.5 10^3/uL (0.2-0.9); Monocytes % 8.6 %; Neutrophils # 3.07 10^3/uL (1.8-7.7); Neutrophils % 54.7 %; Nucleated Red Blood Cells % 0 %; Platelet Count 313 10^3/cmm (130-400); Red Blood Count 5.42 10^6/uL (4.1-5.3); Red Cell Distribution Width 11.9 % (12.1-15.1); White Blood Count 5.6 10^3/uL (4.0-10.0)
--- NOTE | 2022-01-20 17:13 | CTR_ITS ---
PROCEDURE INFORMATION: Exam: CT Abdomen And Pelvis Without Contrast Exam date and time: 01/20/2022 5:51 PM Age: 26 years old Clinical indication: Other: Unable to urinate; Prior surgery; Surgery date: 6+ months; Surgery type: Appy; Additional info: Flank pain TECHNIQUE: Imaging protocol: Computed tomography of the abdomen and pelvis without contrast. Radiation optimization: All CT scans at this facility use at least one of these dose optimization techniques: automated exposure control; mA and/or kV adjustment per patient size (includes targeted exams where dose is matched to clinical indication); or iterative reconstruction. COMPARISON: CT abdomen pelvis w con* [id number] 01/21/2017 12:22 AM RADIATION DOSE METRICS: Total DLP (mGy-cm): 1263.76 FINDINGS: Liver: Normal. No mass. Gallbladder and bile ducts: Normal. No calcified stones. No ductal dilation. Pancreas: Normal. No ductal dilation. Spleen: Normal. No splenomegaly. Adrenal glands: Normal. No mass. Kidneys and ureters: No obstructing calculus. No hydronephrosis. Stomach and bowel: Surgical sutures in the pericecal/appendiceal region. No regional inflammatory response. Appendix: Prior appendectomy. Intraperitoneal space: Unremarkable. No free air. No significant fluid collection. Vasculature: No abdominal aortic aneurysm. Lymph nodes: No enlarged lymph nodes. Urinary bladder: Somewhat distended bladder with probable mild nonspecific bladder wall thickening. Cystitis versus mild hypertrophy should be excluded clinically. Reproductive: Prostate normal in size. Incidentally noted are probable bilateral scrotal varicoceles. Clinical/sonographic/duplex imaging correlation may be helpful. Prior ultrasound demonstrated varicoceles in September 2018. Bones/joints: Tiny sclerotic focus measuring 4 mm in the left proximal femur is likely benign such as bone island. Soft tissues: No acute findings. CT/CT kidney stone [id number] IMPRESSION: 1. No urinary calculi or hydronephrosis. Minimal bladder wall thickening. See discussion above. Somewhat limited exam due to lack of contrast. 2. 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 See discussion above.
--- NOTE | 2022-01-20 17:19 | PC.NURSE ---
attempted urinary catheter x2 per Dr. Woodard, he was notified and at bedside during second attempt, Dr. Woodard states to send patient to ct, and to notify [facility] for Urology cart for when he returns from ct.
[2022-01-20 17:20] LABS: Alanine Aminotransferase 29 U/L (0-41); Albumin Level 4.4 g/dL (3.5-5.2); Alkaline Phosphatase 78 IU/L (40-130); Anion Gap 13.9 (5-19); Aspartate Amino Transferase 17 U/L (0-40); Blood Urea Nitrogen 11 mg/dL (6-20); Calcium 8.8 mg/dL (8.5-10.5); Carbon Dioxide 28 mmol/L (22-29); Chloride 101 mmol/L (98-107); Globulin 2.2 g/dL (1.3-4.6); Glomerular Filtration Rate 103.7 mL/min (90-130); Glucose 100 mg/dL (65-115); Osmolality Calculated 287 mOsm/kg (285-295); Potassium 3.9 mmol/L (3.5-5.1); Sodium 139 mmol/L (136-145); Total Protein 6.6 g/dL (6.6-8.7)
[2022-01-20 17:40] LABS: Add Urine Microscopic? YES; Bilirubin Urine 2+ (Negative); Blood Urine 3+ (Negative); Glucose Urine UA Norm (Normal); Ketones Urine Negative (Negative); Leukocyte Esterase Urine Negative (Negative); Nitrate Urine Positive (Negative); Protein Urine 2+ (Negative); Urine Appearance Clear (CLEAR); Urobilinogen Urine 1+ mg/dL (Negative); pH Urine 5 (5-7)
--- NOTE | 2022-01-20 17:40 | PC.NURSE ---
called ct they will come get patient after their current patient. Patient pacing the room.
[2022-01-20 17:42] LABS: Urine Color Orange (Yellow)
[2022-01-20 17:43] LABS: Bacteria Urine TRACE /hpf; Mucus Urine 2+ /hpf; RBC Urine >100 /hpf (0-2); Squamous Epithelial Cell Urine 0-4 /hpf (0-5)
[2022-01-20 17:44] LABS: Add Urine Culture? Yes
--- NOTE | 2022-01-20 19:16 | PC.NURSE ---
1899 Assumed pt care from Dolores LUDWIG
[2022-01-20] MEDS: lidocaine 2% Urojet 20 mL TOPICAL (19:55)
[2022-01-20] MEDS: fentaNYL 50 mcg/mL INJ 2mL IVP (20:04)
--- NOTE | 2022-01-20 21:43 | PC.NURSE ---
[address] 14f coude العلي catheter per order. Urojet injected into penis opening. Let the gel sit for 5 min then [address] catheter. During placement felt resistence and would not advance further. After trying to manipulate to advance unsuccessfully, removed catheter. Small amt bleeding from meatus after catheter removal. Pt has pressure in needing to urinate and having pain. Dr Guthrie updated of situation.
[2022-01-20] MEDS: morphine 4 mg/mL SDV 1 mL IVP (23:35)
[2022-01-21 00:30] VITALS: BP 128/70; PULSE 116; RESP 18; O2SAT 96
== END 2022-01-21 00:30 | disposition short-term general hospital (02) ==
PROVIDERS: Family Medicine; Emergency Provider Emergency Medicine; PCP Nurse Practitioner Family
DX: R33.9 Retention of urine, unspecified (principal); Z79.891 Long term (current) use of opiate analgesic
CPT/HCPCS: 51798; 74176; 80053; 81001; 85025; 87086; 87491; 87591; 96374; 96375; 99284; J2270; J3010

== ENCOUNTER 2022-02-02 06:59 | Emergency (ER) | payer OTHER, SELFPAY ==
[2022-02-02 07:06] VITALS: BP 132/88; PULSE 74; RESP 18; TEMP 36.8; O2SAT 98; BMI 27.0
--- NOTE | 2022-02-02 07:29 | CTR_ITS ---
PROCEDURE INFORMATION: Exam: CT Abdomen And Pelvis Without Contrast Exam date and time: 02/02/2022 7:51 AM Age: 27 years old Clinical indication: Abdominal pain; Flank; Other: Bilateral; Prior surgery; Surgery type: Appy, ; additional info: Pain post surgery, had urethral stricture repair and repair of a false passage TECHNIQUE: Imaging protocol: Computed tomography of the abdomen and pelvis without contrast. Radiation optimization: All CT scans at this facility use at least one of these dose optimization techniques: automated exposure control; mA and/or kV adjustment per patient size (includes targeted exams where dose is matched to clinical indication); or iterative reconstruction. COMPARISON: CT kidney stone [id number] 01/20/2022 5:51 PM RADIATION DOSE METRICS: Total DLP (mGy-cm): 1385.68 FINDINGS: Lungs: Bibasilar mild pulmonary subsegmental atelectasis is present. Liver: Normal. No mass. Gallbladder and bile ducts: Normal. No calcified stones. No ductal dilation. Pancreas: Normal. No ductal dilation. Spleen: Normal. No splenomegaly. Adrenal glands: Normal. No mass. Kidneys and ureters: No upper urinary tract calculi. No specific evidence of acute obstructive uropathy. Stomach and bowel: There is mildly increased stool noted in the ascending and proximal transverse colon. Appendix: Surgical alexandria and/or clips are noted at the previous base of the appendix. The appendix is surgically absent. Intraperitoneal space: No free air. No significant fluid collection. Vasculature: Unremarkable. No abdominal aortic aneurysm. Lymph nodes: No enlarged lymph nodes. Urinary bladder: Mild urinary bladder wall thickening. Reproductive: Unremarkable as visualized. Bones/joints: The patient demonstrates a transitional vertebra, which is considered to be a partially lumbarized S1 segment, normal variant. Soft tissues: Unremarkable. CT/CT kidney stone [id number] IMPRESSION: 1. No specific evidence of acute obstructive uropathy. 2. Mild abdominal colonic constipation. 3. Prior appendectomy. 4. Mild urinary bladder wall thickening. Cystitis not excluded. Clinical correlation with urinalysis is recommended.
--- NOTE | 2022-02-02 07:31 | W.ED.MALEGU ---
HPI - Male Genitourinary General: Chief complaint: General Medical Stated complaint: post surgery, abd/side pain Time Seen by Provider: 02/02/22 07:02 Source: patient Mode of arrival: ambulatory Limitations: no limitations History of Present Illness: Patient is a 27-year-old male who presents to ED today for evaluation of back and abdominal pain. Patient tells me approximately a week ago he was seen in our ED and transferred to [facility] secondary to a urethral stricture. He states while in [place] he had what sounds like a urethroplasty performed. Patient states since the procedure he has had pain but feels like it has progressively worsened over the past week. He is complaining of diffuse back and abdominal pain that he describes as more of a soreness. He states his Vasquez was removed 4 days ago. He states he is urinating normally. No fevers. He does not complain of any nausea or vomiting. MD Complaint: other (back/abdomen pain) Onset (ago): day(s) Duration: progressively worsening Severity: moderate Quality: aching, dull and other (soreness) Relieving factors: none Exacerbating factors: none Context: recent surgery Associated symptoms: Deny dysuria, hematuria, nausea or vomiting Related Data: Sexually active: Yes Review of Systems Const: Denies: fever(s), chills, body aches, fatigue or malaise Card: Denies: chest pain Resp: Denies: dyspnea GI: Reports: abdominal pain; Denies: nausea, vomiting, diarrhea or change in bowel habits : Reports: flank pain; Denies: difficulty urinating, dysuria, urinary frequency, urinary urgency, urinary hesitancy or hematuria Musc: Reports: back pain; Denies: neck pain, extremity pain or joint pain Skin/Breast: Denies: rash Neuro: Denies: headache(s), numbness in extremities, weakness in extremities or sensory changes PFS ED PFSH: Medical History No pertinent past medical history Social History Smoking and tobacco status: never smoked Second hand smoke exposure: No Alcohol intake: never Desire information about alcohol rehabilitation?: No Desire information about substance/drug rehabilitation?: No Physical Exam Const: COMMON NORMALS: no acute distress, average body habitus, patient oriented x3, no limitations, healthy appearing, alert and well nourished GENERAL APPEARANCE: cooperative ORIENTATION/CONSCIOUSNESS: Yes awake, Yes oriented to person, Yes oriented to place and Yes oriented to time HENMT: COMMON NORMALS: normocephalic and atraumatic HEAD & SCALP: normal to inspection, normocephalic and atraumatic Resp: COMMON NORMALS: normal respiratory effort and clear to auscultation bilaterally AUSCULTATION: clear to auscultation bilaterally Cardio: COMMON NORMALS: regular rate and regular rhythm RATE: regular rate RHYTHM: regular rhythm GI: COMMON NORMALS: Normal to inspection, nondistended, normoactive bowel sounds present, Soft to palpation, No hepatosplenomegaly present and no masses INSPECTION: Yes normal to inspection AUSCULTATION: Yes normoactive bowel sounds PALPATION: Yes Soft to palpation, Yes Tenderness to palpation present (GI) (throughout abdomen; pt states it feels sore ), No Guarding due to palpation present (GI), No Rigid due to palpation and Yes No hepatosplenomegaly present : BLADDER/KIDNEY EXAM: Yes CVA tenderness Back/Pelvis: GENERAL BACK: Yes CVA tenderness THORACIC SPINE/UPPER BACK: Yes paraspinal muscle tenderness LUMBAR SPINE/LOWER BACK: Yes paraspinal muscle tenderness OTHER: tenderness throughout mid to lower back Extremity: COMMON NORMALS: normal to inspection GENERAL: Yes normal exam except as noted Neuro: GAYLE COMA SCALE: document GCS findings [place] coma scale eye opening: Spontaneous Gayle coma scale verbal response: Orientated [place] coma scale motor response: Obey commands Gayle coma scale total score: 15 COMMON NORMALS: patient oriented x3, moves all extremities, no focal motor deficits and no sensory deficits noted SENSORIUM/ORIENTATION: Yes alert, Yes oriented to person, Yes oriented to place and Yes oriented to time Skin: COMMON NORMALS: no rashes or lesions noted GENERAL SKIN EXAM: no rashes or lesions noted Course Vital Signs: Vital signs: Vital Signs Temperature 98.2 F 02/02/22 07:06 Pulse Rate 74 02/02/22 07:06 Respiratory Rate 16 02/02/22 08:12 Blood Pressure 135/83 02/02/22 08:12 Pulse Oximetry 96 02/02/22 08:12 [facility] - Male Medical Decision Making Patient clinically appears well. His vital signs are stable. His blood work and UA are completely unremarkable. CT scan is essentially normal. He does have colonic constipation. He has got some thickening to his urinary bladder with recommendations to correlate for cystitis. Again his UA is completely normal. Most likely this is secondary to recent urological procedure. At this time patient is stable for DC from an emergency standpoint. Recommend he follow-up with his urologist in [place] as soon as possible if pain persists. Lab Data : 02/02/22 07:36 02/02/22 07:36 Radiology Impressions Abdomen/Pelvis CT 02/02/22 07:29 IMPRESSION: 1. No specific evidence of acute obstructive uropathy. 2. Mild abdominal colonic constipation. 3. Prior appendectomy. 4. Mild urinary bladder wall thickening. Cystitis not excluded. Clinical correlation with urinalysis is recommended. Laboratory Results WBC 6.2 10^3/uL (4.0-10.0) 02/02/22 07:36 RBC 5.15 10^6/uL (4.1-5.3) 02/02/22 07:36 Hgb 16.3 g/dL (11.7-16.6) 02/02/22 07:36 Hct 48.0 % (42.0-52.0) 02/02/22 07:36 MCV 93.2 fl (80-94) 02/02/22 07:36 MCH 31.7 pg (28.0-34.0) 02/02/22 07:36 MCHC 34.0 g/dL (30.0-36.0) 02/02/22 07:36 RDW 11.9 % (12.1-15.1) L 02/02/22 07:36 Plt Count 367 10^3/cmm (130-400) 02/02/22 07:36 MPV 10.4 fL (7.4-10.4) 02/02/22 07:36 Neut % (Auto) 38.3 % 02/02/22 07:36 Lymph % (Auto) 46.2 % 02/02/22 07:36 Bryan % (Auto) 8.7 % 02/02/22 07:36 Eos % (Auto) 4.7 % 02/02/22 07:36 Baso % (Auto) 1.9 % 02/02/22 07:36 Neut # (Auto) 2.39 10^3/uL (1.8-7.7) 02/02/22 07:36 Lymph # (Auto) 2.9 10^3/uL (0.8-4.8) 02/02/22 07:36 Bryan # (Auto) 0.5 10^3/uL (0.2-0.9) 02/02/22 07:36 Eos # (Auto) 0.3 10^3/uL (0.0-0.8) 02/02/22 07:36 Baso # (Auto) 0.1 10^3/uL (0.0-0.1) 02/02/22 07:36 Nucleated RBC % (auto) 0 % 02/02/22 07:36 Nucleated RBCs # 0.0 /100WBC 02/02/22 07:36 Sodium 141 mmol/L (136-145) 02/02/22 07:36 Potassium 3.8 mmol/L (3.5-5.1) 02/02/22 07:36 Chloride 104 mmol/L (98-107) 02/02/22 07:36 Carbon Dioxide 28 mmol/L (22-29) 02/02/22 07:36 Anion Gap 12.8 (5-19) 02/02/22 07:36 BUN 13 mg/dL (6-20) 02/02/22 07:36 Creatinine 0.9 mg/dL (0.7-1.2) 02/02/22 07:36 GFR Calculation 102.8 mL/min (90-130) 02/02/22 07:36 Glucose 89 mg/dL (65-115) 02/02/22 07:36 Calculated Osmolality 292 mOsm/kg (285-295) 02/02/22 07:36 Calcium 9.4 mg/dL (8.5-10.5) 02/02/22 07:36 Total Bilirubin 0.4 mg/dL (0.15-1.2) 02/02/22 07:36 AST 19 U/L (0-40) 02/02/22 07:36 ALT 31 U/L (0-41) 02/02/22 07:36 Alkaline Phosphatase 91 IU/L (40-130) 02/02/22 07:36 Total Protein 6.7 g/dL (6.6-8.7) 02/02/22 07:36 Albumin 4.3 g/dL (3.5-5.2) 02/02/22 07:36 Globulin 2.4 g/dL (1.3-4.6) 02/02/22 07:36 Urine Color Yellow (Yellow) 02/02/22 08:06 Urine Appearance Clear (CLEAR) 02/02/22 08:06 Urine pH 5 (5-7) 02/02/22 08:06 Ur Specific [place] 1.020 (1.005-1.030) 02/02/22 08:06 Urine Protein Neg (Negative) 02/02/22 08:06 Urine Glucose (UA) Norm (Normal) 02/02/22 08:06 Urine Ketones Negative (Negative) 02/02/22 08:06 Urine Blood Neg (Negative) 02/02/22 08:06 Urine Nitrate Negative (Negative) 02/02/22 08:06 Urine Bilirubin Neg (Negative) 02/02/22 08:06 Urine Urobilinogen Norm mg/dL (Negative) 02/02/22 08:06 Ur Leukocyte Esterase Negative (Negative) 02/02/22 08:06 Discharge Plan Discharge Patient Disposition: Home Clinical Impression: Status post urological surgery, Post-operative pain Condition: Stable Prescriptions: No Action (DME) Cock Up Splint See Rx Instructions .Route .MEDSUPPLY Qty: 1 0RF Rx Instructions: As directed naproxen [Naprosyn] 500 mg tablet 500 mg PO BID PRN (Reason: pain) Qty: 20 0RF Pyridium 100 mg tablet 100 mg PO Q8H PRN (Reason: bladder spasms) Qty: 6 0RF Flomax 0.4 mg capsule 0.4 mg PO DAILY Qty: 20 0RF oxycodone 5 mg tablet 5 mg PO Q6H PRN (Reason: pain) Qty: 8 0RF Discharge Orders: Discharge ED (Routine); Ordered 02/02/22 Ordered By: Marlin Nieves Referrals: Lainey Kunz FNP [Primary Care Provider] - Coding Level of Care Code ED Residential Collections for Chg Fwd Exam Comprehensive
[2022-02-02 07:55] VITALS: RESP 18; O2SAT 97
[2022-02-02] MEDS: ondansetron 2 mg/ML SDV 2 mL 4 MG IVP (07:55)
[2022-02-02] MEDS: morphine 4 mg/mL SDV 1 mL IVP (07:55)
[2022-02-02 08:04] LABS: Basophils # 0.1 10^3/uL (0.0-0.1); Basophils % 1.9 %; Eosinophils # 0.3 10^3/uL (0.0-0.8); Eosinophils % 4.7 %; Hemoglobin 16.3 g/dL (11.7-16.6); Lymphocytes # 2.9 10^3/uL (0.8-4.8); Lymphocytes % 46.2 %; Mean Corpuscular Hemoglobin 31.7 pg (28.0-34.0); Mean Corpuscular Volume 93.2 fl (80-94); Mean Platelet Volume 10.4 fL (7.4-10.4); Monocytes # 0.5 10^3/uL (0.2-0.9); Monocytes % 8.7 %; Neutrophils # 2.39 10^3/uL (1.8-7.7); Neutrophils % 38.3 %; Nucleated Red Blood Cells % 0 %; Platelet Count 367 10^3/cmm (130-400); Red Blood Count 5.15 10^6/uL (4.1-5.3); Red Cell Distribution Width 11.9 % (12.1-15.1); White Blood Count 6.2 10^3/uL (4.0-10.0)
[2022-02-02 08:09] LABS: Alanine Aminotransferase 31 U/L (0-41); Albumin Level 4.3 g/dL (3.5-5.2); Alkaline Phosphatase 91 IU/L (40-130); Anion Gap 12.8 (5-19); Aspartate Amino Transferase 19 U/L (0-40); Blood Urea Nitrogen 13 mg/dL (6-20); Calcium 9.4 mg/dL (8.5-10.5); Carbon Dioxide 28 mmol/L (22-29); Chloride 104 mmol/L (98-107); Globulin 2.4 g/dL (1.3-4.6); Glomerular Filtration Rate 102.8 mL/min (90-130); Glucose 89 mg/dL (65-115); Osmolality Calculated 292 mOsm/kg (285-295); Potassium 3.8 mmol/L (3.5-5.1); Sodium 141 mmol/L (136-145); Total Bilirubin 0.4 mg/dL (0.15-1.2); Total Protein 6.7 g/dL (6.6-8.7)
[2022-02-02 08:12] VITALS: BP 135/83; RESP 16; O2SAT 96
[2022-02-02 08:23] LABS: Add Urine Microscopic? NO; Charge for UA Resulting for Rev
[2022-02-02 08:24] LABS: Urine Appearance Clear (CLEAR); Urine Color Yellow (Yellow); pH Urine 5 (5-7)
[2022-02-02 08:25] LABS: Bilirubin Urine Neg (Negative); Blood Urine Neg (Negative); Glucose Urine UA Norm (Normal); Ketones Urine Negative (Negative); Leukocyte Esterase Urine Negative (Negative); Nitrate Urine Negative (Negative); Protein Urine Neg (Negative); Urobilinogen Urine Norm (Negative)
[2022-02-02 09:19] VITALS: BP 131/71; PULSE 73; RESP 16; O2SAT 97
== END 2022-02-02 09:20 | disposition home or self-care (01) ==
PROVIDERS: Emergency Provider Physician Assistant; PCP Nurse Practitioner Family
DX: G89.18 Other acute postprocedural pain (principal); Z98.890 Other specified postprocedural states
CPT/HCPCS: 74176; 80053; 81003; 85025; 96374; 96375; 99284; J2270; J2405

== ENCOUNTER 2022-03-11 05:03 | Emergency (ER) | payer OTHER, SELFPAY ==
--- NOTE | 2022-03-11 05:08 | XRR_ITS ---
PROCEDURE INFORMATION: Exam: XR Chest Exam date and time: 03/11/2022 5:42 AM Age: 27 years old Clinical indication: Cough and shortness of breath; Patient HX: SOB coguing x 2 days TECHNIQUE: Imaging protocol: Radiologic exam of the chest. Views: 1 view. Total images: 3 COMPARISON: CR XR chest 2V* [id number] 06/08/2021 2:10 PM FINDINGS: Lungs: Unremarkable. No consolidation. Pleural spaces: Unremarkable. No pleural effusion. No pneumothorax. Heart/Mediastinum: Unremarkable. No cardiomegaly. Bones/joints: Unremarkable. XR/XR chest 1V portable [id number] IMPRESSION: No acute findings.
[2022-03-11 05:16] VITALS: BP 158/93; PULSE 77; RESP 18; TEMP 36.7; O2SAT 99; BMI 26.7
--- NOTE | 2022-03-11 05:20 | W.ED.URI ---
HPI - URI/Sore Throat General: Chief Complaint: COVID symptoms Stated Complaint: SOB Covid + Time Seen by Provider: 03/11/22 05:09 Source: patient Mode of arrival: ambulatory Limitations: no limitations History of Present Illness: 27-year-old male states that he has had a cough along with body aches low-grade fevers over the last 2 days. He states he had some mild shortness of breath he is in no distress here he is 96% on room air. He states he had multiple people at work this last week that is tested positive for COVID he states he took at home positive test that was positive for COVID. He denies any worsening proving factors. Associated symptoms: Deny abdominal pain, chest pain, diarrhea, headache(s), nausea or vomiting Review of Systems Const: Reports: body aches and fatigue Eyes: Denies: blurry vision or eye discomfort ENMT: Denies: throat pain or dental pain Card: Denies: chest pain Resp: Reports: dyspnea and non-productive cough GI: Denies: abdominal pain, nausea, vomiting or diarrhea : Denies: dysuria Musc: Denies: neck pain or back pain Skin/Breast: Denies: rash Neuro: Denies: headache(s) Psych: Denies: depression Tj/Lymph: Denies: easy bruising All/Imm: Denies: urticaria PFSH ED PFSH: Medical History No pertinent past medical history Social History Smoking and tobacco status: never smoked Second hand smoke exposure: No Alcohol intake: never Desire information about alcohol rehabilitation?: No Desire information about substance/drug rehabilitation?: No Physical Exam Const: COMMON NORMALS: no acute distress, patient oriented x3 and healthy appearing HENMT: COMMON NORMALS: normocephalic and atraumatic HEAD & SCALP: normocephalic and atraumatic Eye: COMMON NORMALS: Equal, round and reactive pupils present and EOMs intact bilaterally PUPIL: Yes Equal, round and reactive pupils present Neck/C-Spine: COMMON NORMALS: full ROM and supple Chest: COMMONS NORMALS: normal inspection of the chest and normal palpation of entire chest wall Resp: COMMON NORMALS: normal respiratory effort, No retractions, No use of accessory muscles and clear to auscultation bilaterally AUSCULTATION: clear to auscultation bilaterally Cardio: COMMON NORMALS: regular rate, regular rhythm and No murmurs present (Cardio) RATE: regular rate RHYTHM: regular rhythm GI: COMMON NORMALS: Normal to inspection, nondistended, normoactive bowel sounds present, Soft to palpation, non-tender and no masses PALPATION: Yes Soft to palpation Extremity: COMMON NORMALS: normal to inspection and full ROM Neuro: COMMON NORMALS: patient oriented x3, moves all extremities and no focal motor deficits Psych: COMMON NORMALS: mental status grossly normal, Normal thought process present and cooperative THOUGHT PROCESS: Normal thought process present Skin: COMMON NORMALS: no rashes or lesions noted and no wounds GENERAL SKIN EXAM: no rashes or lesions noted Course Vital Signs: Vital signs: Vital Signs Temperature 98.0 F 03/11/22 05:16 Pulse Rate 79 03/11/22 06:16 Respiratory Rate 18 03/11/22 06:16 Blood Pressure 131/72 03/11/22 06:16 Pulse Oximetry 98 03/11/22 06:16 MDM - URI/Sore Throat Medical Decision Making Patient presents here with cough likely from COVID he is well-appearing here he has no signs of pneumonia his pulse ox here is over 95% on room air we will prescribe patient albuterol he is given Decadron here he is to follow-up with PCP and return if worsening. Lab Data Radiology Impressions Chest X-Ray 03/11/22 05:08 IMPRESSION: No acute findings. Laboratory Results Coronavirus 229E (PCR) Not detected (NOT DETECT) 03/11/22 05:35 SARS-CoV-2 (PCR) Detected (NOT DETECT) A 03/11/22 05:35 Discharge Plan Discharge Patient Disposition: Home Clinical Impression: Suspected COVID-19 virus infection Condition: Stable Prescriptions: New albuterol sulfate 90 mcg/actuation HFA aerosol inhaler 2 inh INHALATION Q6H PRN (Reason: shortness of breath or wheezing) Qty: 8 0RF No Action (DME) Cock Up Splint See Rx Instructions .Route .MEDSUPPLY Qty: 1 0RF Rx Instructions: As directed naproxen [Naprosyn] 500 mg tablet 500 mg PO BID PRN (Reason: pain) Qty: 20 0RF Pyridium 100 mg tablet 100 mg PO Q8H PRN (Reason: bladder spasms) Qty: 6 0RF Flomax 0.4 mg capsule 0.4 mg PO DAILY Qty: 20 0RF oxycodone 5 mg tablet 5 mg PO Q6H PRN (Reason: pain) Qty: 8 0RF Discharge Orders: Discharge ED (Routine); Ordered 03/11/22 Ordered By: David Johnson Referrals: Lainey Kunz, COUNCIL MEMBER [Primary Care Provider] - 1-3 days Discharge Diet: Advance as tolerated Discharge Activity: Resume usual activity Patient Instructions: COVID-19 (Coronavirus Disease 2019) (ED) Stand Alone Forms: Work/School Release Coding Level of Care Code ED Videographer for Dana Fwd Exam Comprehensive
[2022-03-11 05:33] VITALS: PULSE 86; RESP 20; O2SAT 97
[2022-03-11] MEDS: albuterol 8 gm MDI 2 PUFF INHALATION (05:35)
[2022-03-11] MEDS: dexamethasone 10 mg/mL INJ IM (05:36)
[2022-03-11 06:16] VITALS: BP 131/72; PULSE 79; RESP 18; O2SAT 98
[2022-03-11 07:29] LABS: Adenovirus Not Detected (NOT DETECT); Chlamydia Pneumoniae Not Detected (NOT DETECT); Coronavirus 229E,HKU1,NL63,OC4 Not Detected (NOT DETECT); Human Metapneumovirus Not Detected (NOT DETECT); Human Rhinovirus/Enterovirus Not Detected (NOT DETECT); Influenza A Not Detected (NOT DETECT); Influenza A H1 Not Detected (NOT DETECT); Influenza A H1-2009 Not Detected (NOT DETECT); Influenza A H3 Not Detected (NOT DETECT); Influenza B Not Detected (NOT DETECT); Mycoplasma Pneumoniae Not Detected (NOT DETECT); Parainfluenza Virus Type 1 Not Detected (NOT DETECT); Parainfluenza Virus Type 2 Not Detected (NOT DETECT); Parainfluenza Virus Type 3 Not Detected (NOT DETECT); Parainfluenza Virus Type 4 Not Detected (NOT DETECT); Respiratory Syncytial Virus A Not Detected (NOT DETECT); Respiratory Syncytial Virus B Not Detected (NOT DETECT); SARS-COV-2 Detected (NOT DETECT)
== END 2022-03-11 06:22 | disposition home or self-care (01) ==
PROVIDERS: Emergency Provider Emergency Medicine; PCP Nurse Practitioner Family
DX: R06.02 Shortness of breath (principal); R05.9 Cough, unspecified
CPT/HCPCS: 71045; 87635; 94640; 96372; 99284; J1100; J3535

== ENCOUNTER 2022-11-19 16:19 | Outpatient (CLI) | payer OTHER, SELFPAY ==
--- NOTE | 2022-11-19 16:55 | XR_ITS ---
WS: [id number] Chest 2 views, 11/19/2022 Clinical Data: COUGH Comparison: Portable chest, 03/11/2022 Findings: No nodules, masses or effusions are seen. The heart is normal. The pulmonary vascularity is not increased. No pneumonia or pneumothorax is seen. There is minimal patchy atelectasis in the righ t middle lobe and lingula of the left upper lobe. XR/XR chest 2V* [id number] Impression: Negative chest.
== END 2022-11-19 16:20 | disposition home or self-care (01) ==
PROVIDERS: PCP Nurse Practitioner Family; Visit Provider Nurse Practitioner Family
DX: R61 Generalized hyperhidrosis (principal); R05.9 Cough, unspecified
CPT/HCPCS: 71046

== ENCOUNTER 2023-03-31 12:05 | Emergency (ER) | payer OTHER, SELFPAY ==
[2023-03-31 12:10] VITALS: BP 132/84; PULSE 88; RESP 16; TEMP 36.3; O2SAT 99
--- NOTE | 2023-03-31 12:54 | ED_ITS ---
HPI - Abdominal Pain General: Chief Complaint: Abdominal Pain Stated Complaint: Abd pain, head pain Time Seen by Provider: 03/31/23 12:36 Source: patient Mode of arrival: ambulatory History of Present Illness: 28-year-old male presents emergency room clinical left-sided abdominal pain left flank pain began around 2 AM this morning. Is been progressively worsening since then. No hematochezia melena hematemesis cough cramps no dysuria urgency or frequency or hematuria he denies any fever no shortness of breath or chest pain MD elicited complaint: abdominal pain Onset (ago): hour(s) (11) Location: LUQ, LLQ and L flank Severity: moderate Exacerbating factors: nothing Relieving factors: nothing Associated Symptoms: Denies anorexia, belching, bloating, change in bowel habits, change in stool character, chills, coffee ground emesis, constipation, GI cramping, diarrhea, dyspepsia, dysuria, excessive flatus, fever(s), heart burn, hematochezia, hematuria, hematemesis, fecal incontinence, loose stools, melena, nausea, poor appetite, syncope and vomiting Review of Systems Const: Denies: fever(s) or chills Card: Denies: syncope Resp: Denies: dyspnea, productive cough or non-productive cough GI: Reports: abdominal pain; Denies: nausea, vomiting, hematemesis, coffee ground emesis, heartburn, diarrhea, constipation, bloating, GI cramping, belching, excessive flatus, fecal incontinence, change in bowel habits, change in stool character, hematochezia or melena : Denies: dysuria or hematuria Musc: Denies: neck pain or back pain Skin/Breast: Denies: rash or pruritus PFSH ED PFSH: Medical History No pertinent past medical history Social History Smoking and tobacco status: never smoked Second hand smoke exposure: No Alcohol intake: never Desire information about alcohol rehabilitation?: No Substance/Drug Use: never Desire information about substance/drug rehabilitation?: No Physical Exam Const: GENERAL APPEARANCE: cooperative and comfortable ORIENTATION/CONSCIOUSNESS: Yes awake, Yes oriented to person, Yes oriented to place and Yes oriented to time HENMT: COMMON NORMALS: normocephalic, atraumatic and hearing grossly normal bilaterally HEAD & SCALP: normocephalic and atraumatic Resp: COMMON NORMALS: normal respiratory effort, No retractions, No use of accessory muscles and clear to auscultation bilaterally AUSCULTATION: clear to auscultation bilaterally Cardio: COMMON NORMALS: regular rate, regular rhythm and No murmurs present (Cardio) RATE: regular rate RHYTHM: regular rhythm GI: COMMON NORMALS: Soft to palpation and No hepatosplenomegaly present AUSCULTATION: Yes normoactive bowel sounds PALPATION: Yes Soft to palpation, No Tenderness to palpation present (GI), No Guarding due to palpation present (GI) and Yes No hepatosplenomegaly present Extremity: COMMON NORMALS: normal to inspection, capillary refill normal, no clubbing, cyanosis or edema, no calf tenderness and no pedal edema Neuro: SENSORIUM/ORIENTATION: Yes oriented to person, Yes oriented to place and Yes oriented to time Skin: COMMON NORMALS: no rashes or lesions noted GENERAL SKIN EXAM: no rashes or lesions noted Course Vital Signs: Vital signs: Vital Signs Temperature 97.4 F L 03/31/23 12:10 Pulse Rate 77 03/31/23 13:44 Respiratory Rate 18 03/31/23 13:44 Blood Pressure 143/83 03/31/23 13:44 Pulse Oximetry 100 03/31/23 13:44 Oxygen Delivery Me thod Room Air 03/31/23 13:44 MDM - Abdominal Pain Medical Decision Making A sending colitis. Will start on oral antibiotics. Clear liquid diet recheck if does not improve or worsens. Medical Records I reviewed the patient's medical records. Lab Data I reviewed the patient's lab results. 03/31/23 12:56 03/31/23 12:56 Labs/Radiology: Radiology Impressions Abdomen/Pelvis CT 03/31/23 13:04 IMPRESSION: 1. Prior appendectomy. 2. Diffuse transmural thickening involving the cecum and ascending colon compatible with infectious or inflammatory colitis. Consider C. difficile coliti s. Transverse colon and descending colon have a more normal appearance. 3. A few reactive lymph nodes in the RIGHT lower quadrant. 4. No hydronephrosis. No obstructing renal or ureteral calculi. Laboratory Results WBC 6.2 10^3/uL (4.0-10.0) 03/31/23 12:56 RBC 5.56 10^6/uL (4.1-5.3) H 03/31/23 12:56 Hgb 17.3 g/dL (11.7-16.6) H 03/31/23 12:56 Hct 51.3 % (42.0-52.0) 03/31/23 12:56 MCV 92.3 fl (80-94) 03/31/23 12:56 MCH 31.1 pg (28.0-34.0) 03/31/23 12:56 MCHC 33.7 g/dL (30.0-36.0) 03/31/23 12:56 RDW 11.9 % (12.1-15.1) L 03/31/23 12:56 Plt Count 298 10^3/cmm (130-400) 03/31/23 12:56 MPV 9.9 fL (7.4-10.4) 03/31/23 12:56 Neut % (Auto) 58.9 % 03/31/23 12:56 Lymph % (Auto) 27.1 % 03/31/23 12:56 [place] % (Auto) 8.7 % 03/31/23 12:56 Eos % (Auto) 4.3 % 03/31/23 12:56 Baso % (Auto) 0.8 % 03/31/23 12:56 Neut # (Auto) 3.66 10^3/uL (1.8-7.7) 03/31/23 12:56 Lymph # (Auto) 1.7 10^3/uL (0.8-4.8) 03/31/23 12:56 [place] # (Auto) 0.5 10^3/uL (0.2-0.9) 03/31/23 12:56 Eos # (Auto) 0.3 10^3/uL (0.0-0.8) 03/31/23 12:56 Baso # (Auto) 0.1 10^3/uL (0.0-0.1) 03/31/23 12:56 Nucleated RBC % (auto) 0 % 03/31/23 12:56 Nucleated RBCs # 0.0 /100WBC 03/31/23 12:56 Sodium 140 mmol/L (136-145) 03/31/23 12:56 Potassium 4.1 mmol/L (3.5-5.1) 03/31/23 12:56 Chloride 102 mmol/L (98-107) 03/31/23 12:56 Carbon Dioxide 30 mmol/L (22-29) H 03/31/23 12:56 Anion Gap 12.1 (5-19) 03/31/23 12:56 BUN 10 mg/dL (6-20) 03/31/23 12:56 Creatinine 0.9 mg/dL (0.7-1.2) 03/31/23 12:56 GFR Calculation 102.0 mL/min (90-130) 03/31/23 12:56 Glucose 64 mg/dL (65-115) L 03/31/23 12:56 Calculated Osmolality 287 mOsm/kg (285-295) 03/31/23 12:56 Calcium 9.2 mg/dL (8.5-10.5) 03/31/23 12:56 Total Bilirubin 0.6 mg/dL (0.15-1.2) 03/31/23 12:56 AST 19 U/L (0-40) 03/31/23 12:56 ALT 22 U/L (0-41) 03/31/23 12:56 Alkaline Phosphatase 85 U/L (40-130) 03/31/23 12:56 Total Protein 7.0 g/dL (6.6-8.7) 03/31/23 12:56 Albumin 4.4 g/dL (3.5-5.2) 03/31/23 12:56 Globulin 2.6 g/dL (1.3-4.6) 03/31/23 12:56 Lipase 22 U/L (13-60) 03/31/23 12:56 Urine Color Yellow (Yellow) 03/31/23 13:15 Urine Appearance Clear (CLEAR) 03/31/23 13:15 Urine pH 5 (5-7) 03/31/23 13:15 Ur Specific [place] 1.030 (1.005-1.030) 03/31/23 13:15 Urine Protein Neg (Negative) 03/31/23 13:15 Urine Glucose (UA) Norm (Normal) 03/31/23 13:15 Urine Ketones Negative (Negative) 03/31/23 13:15 Urine Blood Neg (Negative) 03/31/23 13:15 Urine Nitrate Negative (Negative) 03/31/23 13:15 Urine Bilirubin Neg (Negative) 03/31/23 13:15 Urine Urobilinogen Norm mg/dL (Negative) 03/31/23 13:15 Ur Leukocyte Esterase Negative (Negative) 03/31/23 13:15 Discharge Plan Discharge Patient Disposition: Home Clinical Impression: Colitis Condition: Stable Prescriptions: New Cipro 500 mg tablet 500 mg PO BID Qty: 14 0RF metronidazole 500 mg tablet 500 mg PO BID 7 Days Qty: 14 0RF promethazine 25 mg tablet 25 mg PO Q6H PRN (Reason: nausea and vomiting) Qty: 20 0RF Discharge Orders: Discharge ED (Routine); Ordered 03/31/23 Ordered By: Brenden Woodard Referrals: Lainey Kunz, [employer]ATION CREW SUPERVISOR [Primary Care Provider] - Patient Instructions: Opioid Safety, Pain Management Coding Level of Care Code ED Assistant Manager/Embalmer for Dana Arizmendi
[2023-03-31 13:04] VITALS: PULSE 92; RESP 16; O2SAT 100
--- NOTE | 2023-03-31 13:04 | ECG_ITS ---
[facility] Test Date: 2023-03-31 Pat Name: Liam Hartman Department: Room: Gender: Male Transportation Analyst: : 1995 Requested By: Brenden Giron Order Number: [id number] Krystal MD: Larry Mesa M.D. Measurements Intervals [place] Rate: 73 P: 51 MO: 155 QRS: 68 QRSD: 114 T: 42 QT: 360 QTc: 399 Interpretive Statements SINUS RHYTHM WITH SINUS ARRHYTHMIA MODERATE INTRAVENTRICULAR CONDUCTION DELAY [110+ ms QRS DURATION] Compared to ECG 11/26/2018 19:33:17 Intraventricular conduction delay now present Electronically Signed On 03-31-2023 13:58:56 CDT by Larry Mesa M.D. [id number]
--- NOTE | 2023-03-31 13:04 | CT_ITS ---
WS: [id number] CT ABDOMEN PELVIS TECHNIQUE: Noncontrast CT of the abdomen and pelvis with coronal and sagittal reformatted images. CLINICAL INFORMATION: flank pain COMPARISON: CT February 02, 2022 DLP: 698.[address] scans at [facility] use at least one of these dose optimization techniques: automated e xposure control; mA and/or kV adjustment per patient size (includes targeted exams where dose is matc hed to clinical indication); or iterative reconstruction. FINDINGS: Prior appendectomy. Diffuse marked transmural thickening involving the cecum and ascending colon susp icious for infectious or inflammatory colitis. This extends to the hepatic flexure. More normal-appea ring transverse colon and descending colon. Normal noncontrast liver and spleen. Normal GE junction. Air-fluid level in the stomach. Noncontrast pancreas is normal. Adrenal glands are normal. No hydronephrosis in either kidney. No obstructing kristel al or ureteral calculi. Normal sigmoid colon. Normal caliber abdominal aorta. Tiny fat-containing umbilical hernia. Lung base s are well aerated. Mild lumbar curve. CT/CT kidney stone [id number] IMPRESSION: 1. Prior appendectomy. 2. Diffuse transmural thickening involving the cecum and ascending colon boris tible with infectious or inflammatory colitis. Consider C. difficile colitis. T ransverse colon and descending colon have a more normal appearance. 3. A few reactive lymph nodes in the RIGHT lower quadrant. 4. No hydronephrosis. No obstructing renal or ureteral calculi.
[2023-03-31 13:12] LABS: Basophils # 0.1 10^3/uL (0.0-0.1); Basophils % 0.8 %; Eosinophils # 0.3 10^3/uL (0.0-0.8); Eosinophils % 4.3 %; Hematocrit 51.3 % (42.0-52.0); Hemoglobin 17.3 g/dL (11.7-16.6); Lymphocytes # 1.7 10^3/uL (0.8-4.8); Lymphocytes % 27.1 %; Mean Corpuscular HGB Conc 33.7 g/dL (30.0-36.0); Mean Corpuscular Hemoglobin 31.1 pg (28.0-34.0); Mean Corpuscular Volume 92.3 fl (80-94); Mean Platelet Volume 9.9 fL (7.4-10.4); Monocytes # 0.5 10^3/uL (0.2-0.9); Monocytes % 8.7 %; Neutrophils # 3.66 10^3/uL (1.8-7.7); Neutrophils % 58.9 %; Nucleated Red Blood Cells % 0 %; Platelet Count 298 10^3/cmm (130-400); Red Blood Count 5.56 10^6/uL (4.1-5.3); Red Cell Distribution Width 11.9 % (12.1-15.1); White Blood Count 6.2 10^3/uL (4.0-10.0)
[2023-03-31] MEDS: sodium chloride 0.9% 1,000 ML 999 ML IV (13:14)
[2023-03-31] MEDS: ondansetron 2 mg/ML SDV 2 mL 4 MG IVP (13:14)
[2023-03-31 13:23] LABS: Add Urine Microscopic? NO; Charge for UA Resulting for Rev
[2023-03-31 13:32] LABS: Alanine Aminotransferase 22 U/L (0-41); Albumin Level 4.4 g/dL (3.5-5.2); Alkaline Phosphatase 85 U/L (40-130); Anion Gap 12.1 (5-19); Aspartate Amino Transferase 19 U/L (0-40); Blood Urea Nitrogen 10 mg/dL (6-20); Calcium 9.2 mg/dL (8.5-10.5); Carbon Dioxide 30 mmol/L (22-29); Chloride 102 mmol/L (98-107); Creatinine Clr Calc Pharmacy 132.8473; Globulin 2.6 g/dL (1.3-4.6); Glucose 64 mg/dL (65-115); Osmolality Calculated 287 mOsm/kg (285-295); Potassium 4.1 mmol/L (3.5-5.1); Sodium 140 mmol/L (136-145); Total Bilirubin 0.6 mg/dL (0.15-1.2)
[2023-03-31 13:36] LABS: Bilirubin Urine Neg (Negative); Blood Urine Neg (Negative); Glucose Urine UA Norm (Normal); Ketones Urine Negative (Negative); Leukocyte Esterase Urine Negative (Negative); Nitrate Urine Negative (Negative); Protein Urine Neg (Negative); Urine Appearance Clear (CLEAR); Urine Color Yellow (Yellow); Urobilinogen Urine Norm (Negative); pH Urine 5 (5-7)
[2023-03-31 13:43] VITALS: RESP 18; O2SAT 100
[2023-03-31] MEDS: morphine 4 mg/mL SDV 1 mL IVP (13:43)
[2023-03-31 13:44] VITALS: BP 143/83; PULSE 77; RESP 18; O2SAT 100
[2023-03-31 14:00] LABS: Lipase 22 U/L (13-60)
== END 2023-03-31 15:24 | disposition home or self-care (01) ==
PROVIDERS: Emergency Provider Family Medicine; PCP Nurse Practitioner Family
DX: K52.9 Noninfective gastroenteritis and colitis, unspecified (principal)
CPT/HCPCS: 74176; 80053; 81003; 83690; 85025; 93005; 96361; 96374; 96375; 99285; J2270; J2405; J7030

== ENCOUNTER 2023-07-05 22:25 | Emergency (ER) | payer OTHER, SELFPAY ==
[2023-07-05 22:26] VITALS: BP 142/88; PULSE 87; RESP 16; TEMP 36.5; O2SAT 96
--- NOTE | 2023-07-05 22:45 | W.ED.EXTPRO ---
HPI - Extremity Problem General: Chief complaint: Extremity Injury, Upper Stated complaint: Left Thumb Cut Time Seen by Provider: 07/05/23 22:26 Source: patient Mode of arrival: ambulatory Limitations: no limitations History of Present Illness: 28-year-old male states that he had a razor knife when he slipped and lacerated the distal tip of his left thumb he has a very superficial less than 1 cm laceration to distal tip bleeding is controlled at this time he denies any pain he is up-to-date on his tetanus Associated symptoms: Deny chest pain, fever(s) or rash Review of Systems Const: Denies: fever(s) or chills ENMT: Denies: throat pain or dental pain Card: Denies: chest pain Resp: Denies: dyspnea GI: Denies: abdominal pain, nausea, vomiting or diarrhea Musc: Denies: neck pain or back pain Skin/Breast: Denies: rash Neuro: Denies: headache(s) PFSH ED PFSH: Medical History No pertinent past medical history Social History Smoking and tobacco/nicotine status: never used tobacco/nicotine Second hand smoke exposure: No Alcohol intake: never Substance/Drug Use: never Physical Exam Const: COMMON NORMALS: no acute distress and patient oriented x3 HENMT: COMMON NORMALS: normocephalic and atraumatic HEAD & SCALP: normocephalic and atraumatic Neck/C-Spine: COMMON NORMALS: full ROM Chest: COMMONS NORMALS: normal inspection of the chest Resp: COMMON NORMALS: normal respiratory effort Extremity: OTHER: Superficial less than 1 cm laceration to distal tip of left thumb Neuro: COMMON NORMALS: patient oriented x3 Psych: COMMON NORMALS: mental status grossly normal Procedures Laceration Laceration 1: Site: hand Side (If applicable): left Size (cm): 0.5 Description: linear Depth: simple, single layer Pre-repair: wound explored and irrigated extensively Skin layer closed with: other (dermabond) Course Vital Signs: Vital signs: Vital Signs Temperature 97.7 F 07/05/23 22:26 Pulse Rate 87 07/05/23 22:26 Respiratory Rate 16 07/05/23 22:26 Blood Pressure 142/88 07/05/23 22:26 Pulse Oximetry 96 07/05/23 22:26 MDM - Extremity (Nontraumatic) Medical Decision Making Patient presents here with a distal thumb laceration did repair with tissue adhesive he is up-to-date on his tetanus he stable for discharge No radiology studies performed this visit Discharge Plan Discharge Patient Disposition: Home Clinical Impression: Laceration of thumb Condition: Stable Prescriptions: No Action Cipro 500 mg tablet 500 mg PO BID Qty: 14 0RF promethazine 25 mg tablet 25 mg PO Q6H PRN (Reason: nausea and vomiting) Qty: 20 0RF Discharge Orders: Discharge ED (Routine); Ordered 07/05/23 Ordered By: David Johnson Referrals: Lainey Kunz AIRPORT GUIDE [Primary Care Provider] - Discharge Diet: Advance as tolerated Discharge Activity: Resume usual activity Patient Instructions: Skin Adhesive Care (ED) Coding Level of Care Code ED Sas Clinical Programmer for Dana Arizmendi
--- NOTE | 2023-07-05 22:46 | PC.NURSE ---
wound cleaned with sterile water, 4x4s prior to provider applying skin glue.
[2023-07-05 22:47] VITALS: RESP 14
== END 2023-07-05 22:49 | disposition home or self-care (01) ==
PROVIDERS: Emergency Provider Emergency Medicine; PCP Nurse Practitioner Family
DX: S61.022A Laceration with foreign body of left thumb without damage to nail, initial encounter (principal); W26.0XXA Contact with knife, initial encounter
CPT/HCPCS: 12001; 99282

== ENCOUNTER 2023-07-21 03:04 | Emergency (ER) | payer OTHER, SELFPAY ==
[2023-07-21 03:08] VITALS: BMI 31.4
[2023-07-21 03:11] VITALS: BP 144/97; PULSE 86; RESP 16; TEMP 36.7; O2SAT 99
--- NOTE | 2023-07-21 03:13 | ED_ITS ---
HPI - Eye Problem General: Chief complaint: Eye Problems Stated complaint: bilateral eye pain Time Seen by Provider: 07/21/23 03:08 Source: patient Mode of arrival: ambulatory Limitations: no limitations History of Present Illness: 28-year-old male states he has had pain and burning in his right eye since 11 PM states its been red he had some watering. He denies any exposure get anything in his eye. States he also has pain in his left eye that started shortly thereafter. He states that it is painful to open his eyes and has had decreased vision in both eyes Associated symptoms: Denies fever(s), nausea, neck pain or vomiting Review of Systems Const: Denies: fever(s), chills, body aches or change in appetite Eyes: Reports: eye discomfort and eye redness ENMT: Denies: throat pain or dental pain Card: Denies: chest pain Resp: Denies: dyspnea GI: Denies: abdominal pain, nausea, vomiting or diarrhea Musc: Denies: neck pain or back pain Tj/Lymph: Denies: easy bruising All/Imm: Denies: urticaria PFSH ED PFSH: Medical History No pertinent past medical history Social History Smoking and tobacco/nicotine status: never used tobacco/nicotine Second hand smoke exposure: No Alcohol intake: never Substance/Drug Use: never Physical Exam Const: COMMON NORMALS: no acute distress, patient oriented x3 and healthy appearing HENMT: COMMON NORMALS: normocephalic and atraumatic HEAD & SCALP: normocephalic and atraumatic Eye: COMMON NORMALS: Equal, round and reactive pupils present and EOMs intact bilaterally PUPIL: Yes Equal, round and reactive pupils present OTHER: Erythema noted to right eye slight erythema to left eye no ulcer or abrasion under fluorescein Chest: COMMONS NORMALS: normal inspection of the chest Resp: COMMON NORMALS: normal respiratory effort Extremity: COMMON NORMALS: normal to inspection and full ROM Neuro: COMMON NORMALS: patient oriented x3, moves all extremities and no focal motor deficits Psych: COMMON NORMALS: mental status grossly normal, Normal thought process present and cooperative THOUGHT PROCESS: Normal thought process present Skin: COMMON NORMALS: no rashes or lesions noted and no wounds GENERAL SKIN EXAM: no rashes or lesions noted Course Vital Signs: Vital signs: Vital Signs Temperature 98.0 F 07/21/23 03:11 Pulse Rate 86 07/21/23 03:11 Respiratory Rate 16 07/21/23 03:11 Blood Pressure 144/97 07/21/23 03:11 Pulse Oximetry 99 07/21/23 03:11 MDM - Eye Problem Medical Decision Making Patient presents here with bilateral eye pain and erythema. Under fluorescein exam he has no corneal abrasions or ulcers. He has no signs of orbital or periorbital cellulitis. It is likely conjunctivitis he does have decreased vision in both eyes likely due to the pain he is able to see fingers. He is to follow-up with PCP and return if worsening. Medical Records I reviewed the patient's medical records. Lab Data I reviewed the patient's lab results. No radiology studies performed this visit Discharge Plan Discharge Patient Disposition: Home Clinical Impression: Bacterial conjunctivitis Condition: Stable Prescriptions: New erythromycin 5 mg/gram (0.5 %) ointment 1 applic ophthalmic (eye) Q6H 7 Days Qty: 3.5 0RF No Action Cipro 500 mg tablet 500 mg PO BID Qty: 14 0RF promethazine 25 mg tablet 25 mg PO Q6H PRN (Reason: nausea and vomiting) Qty: 20 0RF Discharge Orders: Discharge ED (Routine); Ordered 07/21/23 Ordered By: David Johnson Referrals: Lainey Kunz, POWDERED SUGAR PULVERIZER OPERATOR [Primary Care Provider] - Discharge Diet: Advance as tolerated Discharge Activity: Resume usual activity Patient Instructions: Conjunctivitis (ED) Stand Alone Forms: Work/School Release Coding Level of Care Code ED Certified Substance Abuse Counselor for Dana Arizmendi
[2023-07-21] MEDS: fluorescein 1 mg Strip EYE-RIGHT (03:24)
[2023-07-21] MEDS: tetracaine 0.5% Op Soln 4 mL Btl 1 DROP EYE-BOTH (03:24)
[2023-07-21 03:27] VITALS: BP 144/97; PULSE 86; RESP 16; O2SAT 99
== END 2023-07-21 03:34 | disposition home or self-care (01) ==
PROVIDERS: Emergency Provider Emergency Medicine; PCP Nurse Practitioner Family
DX: H10.89 Other conjunctivitis (principal)
CPT/HCPCS: 99283

== ENCOUNTER 2024-02-09 08:15 | Emergency (ER) | payer SELFPAY ==
[2024-02-09 08:22] VITALS: BP 154/89; PULSE 70; TEMP 36.9; O2SAT 97; BMI 30.7
--- NOTE | 2024-02-09 08:25 | ECG_ITS ---
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 Measurements Intervals [place] Rate: 59 P: 46 MD: 165 QRS: 46 QRSD: 106 T: 38 QT: 350 QTc: 347 Interpretive Statements SINUS BRADYCARDIA Compared to ECG 03/31/2023 13:31:38 Sinus rhythm no longer present Sinus arrhythmia no longer present Intraventricular conduction delay no longer present Electronically Signed On 02-09-2024 12:21:13 CDT by Larry Mesa M.D. [id number]
--- NOTE | 2024-02-09 08:25 | XRR_ITS ---
PROCEDURE INFORMATION: Exam: XR Chest Exam date and time: 02/09/2024 8:30 AM Age: 29 years old Clinical indication: Cough and dyspnea; Angina pectoris; Patient HX: Left chest pain that radiates to the left arm and up the shoulder and into the left back area since last night. PT states he has taken tums and tylenol with no relief. PT denies any cardiac HX. PT is a&o at this time with patent airway and even respirations; Additional info: Dyspnea/cough TECHNIQUE: Imaging protocol: Radiologic exam of the chest. Views: 1 view. COMPARISON: CR XR chest 2V* [id number] 11/19/2022 4:56 PM FINDINGS: Lungs: No consolidation. Pleural spaces: No sizable pleural effusion or pneumothorax. Heart/Mediastinum: No cardiomegaly. Bones/joints: Unremarkable. XR/XR chest 1V portable [id number] IMPRESSION: No acute intrathoracic findings.
--- NOTE | 2024-02-09 08:31 | ED_ITS ---
HPI - Chest Pain 2 General: Chief Complaint: Chest Pain Stated Complaint: chest pain, shoulder pain, arm pain Time Seen by Provider: 02/09/24 08:22 History of Present Illness: 29-year-old male presents emergency room complaining of chest discomfort that began last night's, waxed and waned throughout the day he went to work today sat through some meetings when it seemed to be getting worse. He has a daily heartburn symptoms he takes an [id number] medication recommended by his primary care provider he also takes a lot of Tums. He has no personal or family history of coronary artery disease. He has had other GI problems and past recent him year ago in the emergency room for an ascending colitis he underwent EGD and colonoscopy in [place] at a later date without significant findings. No associated shortness of breath. PFS ED 2 PFSH: Medical History No pertinent past medical history Social History Smoking and tobacco/nicotine status: never used tobacco/nicotine Second hand smoke exposure: No Alcohol intake: never Substance/Drug Use: never Course 2 Vital Signs: Vital signs: Vital Signs Temperature 98.4 F 02/09/24 08:22 Pulse Rate 69 02/09/24 11:59 Respiratory Rate 17 02/09/24 11:59 Blood Pressure 153/84 02/09/24 11:59 Pulse Oximetry 99 02/09/24 11:59 Oxygen Delivery Me thod Room Air 02/09/24 11:30 MDM - Chest Pain Medical Decision Making Cardiac enzymes and EKG are unremarkable. Will discharge patient home he does have a lot of heartburn symptoms we will put him on Protonix 40 twice a day for 10 days then once daily after that follow-up with primary care fizzing worsening change symptoms return. EKG cardiac enzymes were normal no acute ST changes and EKGs as on the chart. Medical Records I reviewed the patient's medical records. Lab Data I reviewed the patient's lab results. 02/09/24 08:39 02/09/24 08:39 Radiology Impressions Chest X-Ray 02/09/24 08:25 IMPRESSION: No acute intrathoracic findings. Laboratory Results WBC 4.89 10^3/uL (3.29-11.43) 02/09/24 08:39 RBC 5.13 10^6/uL (3.85-5.65) 02/09/24 08:39 Hgb 16.20 g/dL (11.27-16.99) 02/09/24 08:39 Hct 47.5 % (37-53) 02/09/24 08:39 MCV 92.6 fl (82-101) 02/09/24 08:39 MCH 31.6 pg (27-33) 02/09/24 08:39 MCHC 34.1 g/dL (30-55) 02/09/24 08:39 RDW 12.2 % (12.1-15.1) 02/09/24 08:39 Plt Count 304 10^3/cmm (157-399) 02/09/24 08:39 MPV 9.8 fL (7.4-10.4) 02/09/24 08:39 Neut % (Auto) 53.4 % 02/09/24 08:39 Lymph % (Auto) 32.9 % 02/09/24 08:39 [place] % (Auto) 7.6 % 02/09/24 08:39 Eos % (Auto) 4.7 % 02/09/24 08:39 Baso % (Auto) 1.4 % 02/09/24 08:39 Neut # (Auto) 2.61 10^3/uL (1.8-7.7) 02/09/24 08:39 Lymph # (Auto) 1.6 10^3/uL (0.8-4.8) 02/09/24 08:39 [place] # (Auto) 0.4 10^3/uL (0.2-0.9) 02/09/24 08:39 Eos # (Auto) 0.2 10^3/uL (0.0-0.8) 02/09/24 08:39 Baso # (Auto) 0.1 10^3/uL (0.0-0.1) 02/09/24 08:39 Nucleated RBC % (auto) 0 % 02/09/24 08:39 Nucleated RBCs # 0.0 /100WBC 02/09/24 08:39 Sodium 143 mmol/L (136-145) 02/09/24 08:39 Potassium 4.5 mmol/L (3.5-5.1) 02/09/24 08:39 Chloride 106 mmol/L (98-107) 02/09/24 08:39 Carbon Dioxide 28 mmol/L (22-29) 02/09/24 08:39 Anion Gap 13.5 (5-19) 02/09/24 08:39 BUN 16 mg/dL (6-20) 02/09/24 08:39 Creatinine 0.9 mg/dL (0.7-1.2) 02/09/24 08:39 GFR Calculation 101.2 mL/min (90-130) 02/09/24 08:39 Glucose 91 mg/dL (65-115) 02/09/24 08:39 Calculated Osmolality 297 mOsm/kg (285-295) H 02/09/24 08:39 Calcium 9.6 mg/dL (8.5-10.5) 02/09/24 08:39 Total Bilirubin 0.6 mg/dL (0.15-1.2) 02/09/24 08:39 AST 21 U/L (0-40) 02/09/24 08:39 ALT 25 U/L (0-41) 02/09/24 08:39 Alkaline Phosphatase 71 U/L (40-130) 02/09/24 08:39 Troponin T Baseline 9 ng/L (0-15) 02/09/24 08:39 Troponin T 120 Minute 7.60 ng/L (0-15) 02/09/24 10:33 Delta Troponin T -1.40 ABS# (0-10) L 02/09/24 10:33 Total Protein 6.6 g/dL (6.6-8.7) 02/09/24 08:39 Albumin 4.3 g/dL (3.5-5.2) 02/09/24 08:39 Globulin 2.3 g/dL (1.3-4.6) 02/09/24 08:39 All radiology interpretation(s) finalized by discharge EKG Data EKG 1: EKG interpretation date: 02/09/24 EKG interpretation time: 08:23 Computer generated interpretation: Sinus bradycardia with no acute ST changes Discharge Plan Discharge Patient Disposition: Home Clinical Impression: Atypical chest pain, GERD (gastroesophageal reflux disease) Condition: Stable Prescriptions: New Protonix 40 mg tablet,delayed release (DR/EC) 40 mg PO BID 30 Days Qty: 60 0RF Rx Instructions: 1 pill twice a day 10 days then once daily Discharge Orders: Discharge ED (Routine); Ordered 02/09/24 Ordered By: Brenden Woodard Referrals: Lainey Kunz, BUZZSAW OPERATOR HELPER [Primary Care Provider] - Discharge Diet: As Directed Discharge Activity: Resume usual activity Patient Instructions: Diet for Stomach Ulcers and Gastritis (ED), GERD (Gastroesophageal Reflux Disease) (ED), Opioid Safety, Pain Management Activity Restrictions/Additional Instructions: Thank you for choosing [facility] for your healthcare needs today. It is very important that you follow up as instructed or that you return to the Emergency Department should you have concerns or if your condition changes or worsens in any way. You are seen today with atypical chest pain. Your cardiac enzymes and EKG did not show any acute changes. Suspect this is more reflux in nature recommend starting the Protonix 1 pill twice a day for 10 days then once daily. If symptoms persist follow-up with your primary care doctor Coding Level of Care Code ED Papeterie Table Assembler for Dana Arizmendi
[2024-02-09] MEDS: aspirin 81 mg Chew Tablet 324 MG PO (08:41)
[2024-02-09] MEDS: lidocaine 2% viscous 15 ML, aluminum-mag hydrox-simethicon 30 ML, sucralfate oral liq 1 GM PO (08:46)
[2024-02-09 08:47] LABS: Basophils # 0.1 10^3/uL (0.0-0.1); Basophils % 1.4 %; Eosinophils # 0.2 10^3/uL (0.0-0.8); Eosinophils % 4.7 %; Hematocrit 47.5 % (37-53); Lymphocytes # 1.6 10^3/uL (0.8-4.8); Lymphocytes % 32.9 %; Mean Corpuscular HGB Conc 34.1 g/dL (30-55); Mean Corpuscular Hemoglobin 31.6 pg (27-33); Mean Corpuscular Volume 92.6 fl (82-101); Mean Platelet Volume 9.8 fL (7.4-10.4); Monocytes # 0.4 10^3/uL (0.2-0.9); Monocytes % 7.6 %; Neutrophils # 2.61 10^3/uL (1.8-7.7); Neutrophils % 53.4 %; Nucleated Red Blood Cells % 0 %; Platelet Count 304 10^3/cmm (157-399); Red Blood Count 5.13 10^6/uL (3.85-5.65); Red Cell Distribution Width 12.2 % (12.1-15.1); White Blood Count 4.89 10^3/uL (3.29-11.43)
[2024-02-09 09:05] LABS: Alanine Aminotransferase 25 U/L (0-41); Albumin Level 4.3 g/dL (3.5-5.2); Alkaline Phosphatase 71 U/L (40-130); Anion Gap 13.5 (5-19); Aspartate Amino Transferase 21 U/L (0-40); Blood Urea Nitrogen 16 mg/dL (6-20); Calcium 9.6 mg/dL (8.5-10.5); Carbon Dioxide 28 mmol/L (22-29); Chloride 106 mmol/L (98-107); Creatinine Clr Calc Pharmacy 131.1735; Globulin 2.3 g/dL (1.3-4.6); Glomerular Filtration Rate 101.2 mL/min (90-130); Glucose 91 mg/dL (65-115); Osmolality Calculated 297 mOsm/kg (285-295); Potassium 4.5 mmol/L (3.5-5.1); Sodium 143 mmol/L (136-145); Total Bilirubin 0.6 mg/dL (0.15-1.2); Total Protein 6.6 g/dL (6.6-8.7)
[2024-02-09 09:07] LABS: Troponin(5th) Baseline 9 ng/L (0-15)
[2024-02-09 09:30] VITALS: BP 136/86; PULSE 56; O2SAT 96
--- NOTE | 2024-02-09 10:27 | ECG_ITS ---
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 Measurements Intervals [place] Rate: 49 P: 35 UT: 163 QRS: 50 QRSD: 112 T: 40 QT: 398 QTc: 362 Interpretive Statements SINUS BRADYCARDIA LOW QRS VOLTAGE IN PRECORDIAL LEADS [QRS DEFLECTION < 1.0 mV IN CHEST LEADS] MODERATE INTRAVENTRICULAR CONDUCTION DELAY [110+ ms QRS DURATION] Compared to ECG 02/09/2024 08:23:32 Low QRS voltage now present Intraventricular conduction delay now present Electronically Signed On 02-09-2024 12:23:48 CDT by Larry Mesa M.D. [id number]
[2024-02-09 11:15] VITALS: BP 136/79; PULSE 59; RESP 18; O2SAT 97
[2024-02-09 11:30] VITALS: BP 149/83; PULSE 56; O2SAT 97
[2024-02-09 11:59] VITALS: BP 153/84; PULSE 69; RESP 17; O2SAT 99
== END 2024-02-09 12:02 | disposition home or self-care (01) ==
PROVIDERS: Emergency Provider Family Medicine; PCP Nurse Practitioner Family
DX: R07.89 Other chest pain (principal); K21.9 Gastro-esophageal reflux disease without esophagitis
CPT/HCPCS: 36415; 71045; 80053; 84484; 85025; 93005; 99285

== ENCOUNTER 2024-05-07 12:48 | Emergency (ER) | payer SELFPAY ==
[2024-05-07 12:42] VITALS: BP 157/100; PULSE 100; RESP 18; TEMP 36.8; O2SAT 95; BMI 31.1
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
[2024-05-07 12:55] LABS: Basophils # 0.1 10^3/uL (0.0-0.1); Basophils % 1.3 %; Eosinophils # 0.2 10^3/uL (0.0-0.8); Hematocrit 49.8 % (37-53); Lymphocytes # 1.6 10^3/uL (0.8-4.8); Lymphocytes % 36.2 %; Mean Corpuscular HGB Conc 33.7 g/dL (30-55); Mean Corpuscular Hemoglobin 30.8 pg (27-33); Mean Corpuscular Volume 91.4 fl (82-101); Mean Platelet Volume 9.7 fL (7.4-10.4); Monocytes # 0.4 10^3/uL (0.2-0.9); Monocytes % 9.4 %; Neutrophils # 2.17 10^3/uL (1.8-7.7); Neutrophils % 48.9 %; Nucleated Red Blood Cells % 0 %; Platelet Count 329 10^3/cmm (157-399); Red Blood Count 5.45 10^6/uL (3.85-5.65); Red Cell Distribution Width 12.2 % (12.1-15.1); White Blood Count 4.45 10^3/uL (3.29-11.43)
--- NOTE | 2024-05-07 13:00 | ED_ITS ---
HPI - Head Injury 2 General: Chief complaint: Head Injury Stated complaint: head lac History of Present Illness: 29-year-old male presents to the emergen cy room via EMS after accident. 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 He could not really tell us any other specific details he is complaining some blood pressure Associated symptoms: Deny neck pain Related Data Allergies Allergy/AdvReac Type Severity Reaction Status Date / Time No Known Allergies Allergy Verified 02/09/24 08:27 Review of Systems 2 Const: Denies: fever(s) or chills Card: Denies: chest pain Resp: Denies: dyspnea GI: Denies: abdominal pain : Denies: dysuria, urinary frequency or urinary urgency Musc: Reports: joint pain (Left wrist); Denies: neck pain or back pain Skin/Breast: Denies: rash Neuro: Reports: headache(s) PFSH ED 2 PFSH: Medical History No pertinent past medical history Social History Smoking and tobacco/nicotine status: never used tobacco/nicotine Second hand smoke exposure: No Alcohol intake: never Substance/Drug Use: never Physical Exam 2 Const: COMMON NORMALS: no acute distress GENERAL APPEARANCE: cooperative and comfortable ORIENTATION/CONSCIOUSNESS: Yes awake, Yes oriented to person, Yes oriented to place and Yes oriented to time HENMT: COMMON NORMALS: normocephalic and hearing grossly normal bilaterally HEAD & SCALP: normocephalic OTHER: 5 cm scalp laceration in the right front al parietal area Resp: COMMON NORMALS: normal respiratory effort, No retractions, No use of accessory muscles and clear to auscultation bilaterally AUSCULTATION: clear to auscultation bilaterally Cardio: COMMON NORMALS: regular rate, regular rhythm and No murmurs present (Cardio) RATE: regular rate RHYTHM: regular rhythm GI: COMMON NORMALS: Soft to palpation and No hepatosplenomegaly present A USCULTATION: Yes normoactive bowel sounds PALPATION: Yes Soft to palpation, No Tenderness to palpation present (GI), No Guarding due to palpation present (GI) and Yes No hepatosplenomegaly present Extremity: COMMON NORMALS: normal to inspection, capillary refill normal, no clubbing, cyanosis or edema, no calf tenderness and no pedal edema Neuro: SENSORIUM/ORIENTATION: Yes oriented to person, Yes oriented to place and Yes oriented to time Skin: COMMON NORMALS: no rashes or lesions noted GENERAL SKIN EXAM: no rashes or lesions noted Procedures Laceration Laceration 1: Site: scalp Side (If applicable): left Size (cm): 5 Description: linear Depth: simple, single layer Local Anesthetic: lidocaine 1% and with epi Amount of anesthesia used (mL): 2 Pre-repair: irrigated extensively and deep structures intact Size (cm): other ([place]) Technique: other (4 a[place]andria applied for adequate closure) Course 2 Vital Signs: Vital signs: Vital Signs Temperature 98.2 F 05/07/24 12:42 Pulse Rate 77 05/07/24 14:31 Respiratory Rate 16 05/07/24 14:31 Blood Pressure 130/74 05/07/24 14:31 Pulse Oximetry 97 05/07/24 14:31 Oxygen Delivery Me thod Room Air 05/07/24 14:17 MDM - Head Injury Medcial Decision Making Labs and imaging reviewed. No acute findings on the imaging. Wound was cleansed anesthetized 1% lidocaine and closed with 4 alexandria good approximation cosmesis hemostasis. Wound care instructions given follow-up with primary care doctor alexandria removed in approximately 10 days. Medical Records I reviewed the patient's medical records. Lab Data I reviewed the patient's lab results. 05/07/24 12:47 05/07/24 12:47 Radiology Impressions Cervical Spine CT 05/07/24 12:43 IMPRESSION: 1. No CT evidence of acute cervical spine traumatic injury. 2. Additional findings, as above. Chest X-Ray 05/07/24 12:44 IMPRESSION: No acute radiographic findings. Head CT 05/07/24 12:44 IMPRESSION: 1. No CT evidence of acute intracranial pathology. 2. Additional findings, as above. Wrist X-Ray 05/07/24 13:02 IMPRESSION: No acute radiographic findings. Laboratory Results WBC 4.45 10^3/uL (3.29-11.43) 05/07/24 12:47 RBC 5.45 10^6/uL (3.85-5.65) 05/07/24 12:47 Hgb 16.80 g/dL (11.27-16.99) 05/07/24 12:47 Hct 49.8 % (37-53) 05/07/24 12:47 MCV 91.4 fl (82-101) 05/07/24 12:47 MCH 30.8 pg (27-33) 05/07/24 12:47 MCHC 33.7 g/dL (30-55) 05/07/24 12:47 RDW 12.2 % (12.1-15.1) 05/07/24 12:47 Plt Count 329 10^3/cmm (157-399) 05/07/24 12:47 MPV 9.7 fL (7.4-10.4) 05/07/24 12:47 Neut % (Auto) 48.9 % 05/07/24 12:47 Lymph % (Auto) 36.2 % 05/07/24 12:47 [place] % (Auto) 9.4 % 05/07/24 12:47 Eos % (Auto) 4.0 % 05/07/24 12:47 Baso % (Auto) 1.3 % 05/07/24 12:47 Neut # (Auto) 2.17 10^3/uL (1.8-7.7) 05/07/24 12:47 Lymph # (Auto) 1.6 10^3/uL (0.8-4.8) 05/07/24 12:47 [place] # (Auto) 0.4 10^3/uL (0.2-0.9) 05/07/24 12:47 Eos # (Auto) 0.2 10^3/uL (0.0-0.8) 05/07/24 12:47 Baso # (Auto) 0.1 10^3/uL (0.0-0.1) 05/07/24 12:47 Nucleated RBC % (auto) 0 % 05/07/24 12:47 Nucleated RBCs # 0.0 /100WBC 05/07/24 12:47 Sodium 140 mmol/L (136-145) 05/07/24 12:47 Potassium 3.9 mmol/L (3.5-5.1) 05/07/24 12:47 Chloride 103 mmol/L (98-107) 05/07/24 12:47 Carbon Dioxide 24 mmol/L (22-29) 05/07/24 12:47 Anion Gap 16.9 (5-19) 05/07/24 12:47 BUN 9 mg/dL (6-20) 05/07/24 12:47 Creatinine 1.0 mg/dL (0.7-1.2) 05/07/24 12:47 GFR Calculation 89.6 mL/min (90-130) L 05/07/24 12:47 Glucose 110 mg/dL (65-115) 05/07/24 12:47 Calculated Osmolality 289 mOsm/kg (285-295) 05/07/24 12:47 Calcium 9.4 mg/dL (8.5-10.5) 05/07/24 12:47 Total Bilirubin 0.8 mg/dL (0.15-1.2) 05/07/24 12:47 AST 22 U/L (0-40) 05/07/24 12:47 ALT 21 U/L (0-41) 05/07/24 12:47 Alkaline Phosphatase 95 U/L (40-130) 05/07/24 12:47 Total Protein 7.2 g/dL (6.6-8.7) 05/07/24 12:47 Albumin 4.5 g/dL (3.5-5.2) 05/07/24 12:47 Globulin 2.7 g/dL (1.3-4.6) 05/07/24 12:47 All radiology interpretation(s) finalized by discharge Discharge Plan Discharge Patient Disposition: Home Clinical Impression: Closed head injury, Laceration of scalp Condition: Stable Discharge Orders: Discharge ED (Routine); Ordered 05/07/24 Ordered By: Brenden Woodard Referrals: Lainey Kunz, [employer] [Primary Care Provider] - Discharge Diet: Usual diet Discharge Activity: Increase activity as tolerated Patient Instructions: Laceration (ED), Opioid Safety, Pain Management Activity Restrictions/Additional Instructions: Thank you for choosing [facility] for your healthcare needs today. It is very important that you follow up as instructed or that you return to the Emergency Department should you have concerns or if your condition changes or worsens in any way. Coding Level of Care Code ED Java Development Team Lead for Dana Arizmendi
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
--- NOTE | 2024-05-07 13:03 | PC.NURSE ---
PT FAMILY NOTIFIED THIS NURSE THAT PT MOUTH WAS GOING NUMB. MD NOTIFIED. NO NEW ORDERS AT THIS TIME.
[2024-05-07 13:10] LABS: Alanine Aminotransferase 21 U/L (0-41); Albumin Level 4.5 g/dL (3.5-5.2); Alkaline Phosphatase 95 U/L (40-130); Anion Gap 16.9 (5-19); Aspartate Amino Transferase 22 U/L (0-40); Blood Urea Nitrogen 9 mg/dL (6-20); Calcium 9.4 mg/dL (8.5-10.5); Carbon Dioxide 24 mmol/L (22-29); Chloride 103 mmol/L (98-107); Creatinine Clr Calc Pharmacy 118.9105; Globulin 2.7 g/dL (1.3-4.6); Glomerular Filtration Rate 89.6 mL/min (90-130); Glucose 110 mg/dL (65-115); Osmolality Calculated 289 mOsm/kg (285-295); Potassium 3.9 mmol/L (3.5-5.1); Sodium 140 mmol/L (136-145); Total Bilirubin 0.8 mg/dL (0.15-1.2); Total Protein 7.2 g/dL (6.6-8.7)
[2024-05-07 13:30] VITALS: BP 128/95; PULSE 98; O2SAT 95
[2024-05-07] MEDS: tetanus-dipt-pertussis 0.5 mL SDV IM (13:31)
[2024-05-07] MEDS: lidocaine-epi 1% 20 mL INJ INJECTION (13:59)
--- NOTE | 2024-05-07 13:59 | PC.NURSE ---
LIDOCAINE ADMINISTERED BY
[2024-05-07 14:17] VITALS: BP 130/74; PULSE 87; RESP 16; O2SAT 98
[2024-05-07 14:31] VITALS: BP 130/74; PULSE 77; RESP 16; O2SAT 97
== END 2024-05-07 14:25 | disposition home or self-care (01) ==
PROVIDERS: Emergency Provider Family Medicine; PCP Nurse Practitioner Family
DX: S09.8XXA Other specified injuries of head, initial encounter (principal); S01.01XA Laceration without foreign body of scalp, initial encounter; W20.8XXA Other cause of strike by thrown, projected or falling object, initial encounter; Z23 Encounter for immunization
CPT/HCPCS: 12002; 70450; 71045; 72125; 73110; 80053; 85025; 90471; 90715; 99284

== ENCOUNTER 2024-10-22 13:20 | Emergency (ER) | payer SELFPAY ==
[2024-10-22 13:39] VITALS: BP 109/65; PULSE 137; TEMP 39.3; O2SAT 100; BMI 32.5
--- NOTE | 2024-10-22 13:41 | ECG_ITS ---
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
--- NOTE | 2024-10-22 16:08 | ED_ITS ---
Documented by User: BENITO Parker 10/22/24 17:06 HPI - URI/Sore Throat General: Chief Complaint: Upper Respiratory Infection Stated Complaint: SOB, flu symptoms Time Seen by Provider: 10/22/24 15:55 Source: patient Mode of arrival: ambulatory Limitations: no limitations History of Present Illness: Patient is a 29-year-old male that presents to the ER complaining of fever, chills, shortness of breath. Patient states that he has been running a fever since Tuesday. Patient states his highest temp at home was 102.8 ?F. Patient has a significant past medical history of pneumonia twice in the past year. Patient states he is experiencing some sinus pain throughout his frontal and maxillary sinuses with copious discharge from nose and throat. Patient states Tylenol or NyQuil has not helped with his symptoms. Patient was in contact with 2 of his kids that had tested for Influenza A in the past week. Patient denies vomiting, constipation, diarrhea, chest pain, or palpitations. No other complaints at this time. MD elicited complaint: fever, cough, sore throat, rhinorrhea, nasal congestion and sinus pain Pertinent past history: pneumonia Onset (ago): day(s) Consistency: constant Severity: moderate Description of mucous: clear Able to tolerate fluids by mouth: Yes Relieving factors: nothing Context: sick contacts (kids have flu A) and other(s) with similar symptoms Associated symptoms: Reports chills, congestion, cough, ear or mastoid pain, fever(s), nausea and sinus pain; Deny chest pain, diarrhea, headache(s) or vomiting Treatments prior to arrival: acetaminophen and cold medicine Related Data Previous Rx's ?Medication ?Instructions ?Recorded oseltamivir 75 mg capsule (Tamiflu) 75 mg PO BID 5 day s #10 caps 10/22/24 Allergies Allergy/AdvReac Type Severity Reaction Status Date / Time No Known Allergies Allergy Verified 10/22/24 13:46 Review of Systems Const: Reports: fever(s), chills, body aches, fatigue, night sweats and change in sleep pattern ENMT: Reports: throat pain, ear or mastoid pain and sinus pain Card: Denies: chest pain or palpitations Resp: Reports: dyspnea and productive cough GI: Reports: nausea; Denies: vomiting, diarrhea or constipation Musc: Denies: neck pain, back pain, extremity pain, extremity swelling, joint swelling or joint redness Skin/Breast: Denies: rash Neuro: Denies: headache(s), numbness in extremities, weakness in extremities, sensory changes or dizziness PFSH ED 2 PFSH: Medical History No pertinent past medical history Social History Smoking and tobacco/nicotine status: never used tobacco/nicotine Second hand smoke exposure: No Alcohol intake: never Substance/Drug Use: never Physical Exam Const: COMMON NORMALS: no acute distress, average body habitus, no limitations, healthy appearing, alert and well nourished GENERAL APPEARANCE: cooperative and ill appearing ORIENTATION/CONSCIOUSNESS: Yes awake, Yes oriented to person, Yes oriented to place and Yes oriented to time HENMT: FACE & SINUS: normal facial exam Eye: GENERAL EYE: appearance normal, both eyes and all related structures Neck/C-Spine: COMMON NORMALS: no lymphadenopathy Resp: COMMON NORMALS: normal respiratory effort and clear to auscultation bilaterally AUSCULTATION: clear to auscultation bilaterally Cardio: COMMON NORMALS: regular rhythm, No murmurs present (Cardio) and No rub (Cardio) RATE: tachycardic RHYTHM: regular rhythm : COMMON NORMALS: Yes no CVA tenderness BLADDER/KIDNEY EXAM: Yes no CVA tenderness Back/Pelvis: COMMON NORMALS: no CVA tenderness and thoracic and lumbar spine normal to inspection Extremity: GENERAL: Yes normal exam except as noted Neuro: GAYLE COMA SCALE: document GCS findings Gayle coma scale eye opening: Spontaneous Gayle coma scale verbal response: Orientated [place] coma scale motor response: Obey commands [place] coma scale total score: 15 SENSORIUM/ORIENTATION: Yes alert, Yes oriented to person, Yes oriented to place and Yes oriented to time Skin: COMMON NORMALS: no rashes or lesions noted GENERAL SKIN EXAM: no rashes or lesions noted Course Vital Signs: Vital signs: Vital Signs Temperature 102.8 F H 10/22/24 13:39 Pulse Rate 137 H 10/22/24 13:39 Blood Pressure 109/65 10/22/24 13:39 Pulse Oximetry 100 10/22/24 13:39 Oxygen Delivery Me thod Room Air 10/22/24 13:39 MDM - URI/Sore Throat Medical Decision Making Patient here for flu like symptoms. He has 2 children both positive for influenza A. He arrives febrile. He had a concern for possible pneumonia thus CXR was obtained and normal. Pending results of his COVID/influenza/RSV. Care transferred to Ashok Cruz PA-C. Medical Records I reviewed the patient's medical records. Lab Data Radiology Impressions Chest X-Ray 10/22/24 16:30 IMPRESSION: No acute findings. Laboratory Results Influenza A (PCR) Positive (Negative) 10/22/24 16:00 Influenza Type B (PCR) Negative (Negative) 10/22/24 16:00 RSV (PCR) Negative (Negative) 10/22/24 16:00 SARS-CoV-2 (PCR) Negative (Negative) 10/22/24 16:00 XR interpretation done by ED provider, pending radiology final review Discharge Plan Discharge Patient Disposition: Home Clinical Impression: Influenza Condition: Stable Prescriptions: New oseltamivir [Tamiflu] 75 mg capsule 75 mg PO BID 5 Days Qty: 10 0RF Discharge Orders: Discharge ED (Routine); Ordered 10/22/24 Ordered By: Bartolo Cruz Referrals: Lainey Kunz FNP [Primary Care Provider] - Patient Instructions: Influenza (ED) Activity Restrictions/Additional Instructions: Tamiflu as prescribed. Ibuprofen and Tylenol for fevers or bodyaches. Make sure that you are drinking plenty of fluids. Contact precaution as you have been diagnosed with influenza A. Please follow-up routinely with primary care and return with any worsening of breathing or other concerns. Print Language: Salvadorean Sign Out Sign Out Data: Patient Sign Out occurred on 10/22/24 at 17:11. Patient's care was discussed, and care was transferred from BENITO Parker to BENITO Burns. Coding Level of Care Code ED Accountant Machine Processing for Chg Fwd Documented by User: BENITO Burns 10/22/24 17:50 HPI - URI/Sore Throat General: Chief Complaint: Upper Respiratory Infection Stated Complaint: SOB, flu symptoms Time Seen by Provider: 10/22/24 15:55 Related Data Previous Rx's ?Medication ?Instructions ?Recorded oseltamivir 75 mg capsule (Tamiflu) 75 mg PO BID 5 day s #10 caps 10/22/24 Allergies Allergy/AdvReac Type Severity Reaction Status Date / Time No Known Allergies Allergy Verified 10/22/24 13:46 PFSH ED PFSH: Medical History No pertinent past medical history Social History Smoking and tobacco/nicotine status: never used tobacco/nicotine Second hand smoke exposure: No Alcohol intake: never Substance/Drug Use: never Physical Exam Neuro: GAYLE COMA SCALE: document GCS findings [place] coma scale total score: 15 Course Vital Signs: Vital signs: Vital Signs Temperature 102.8 F H 10/22/24 13:39 Pulse Rate 137 H 10/22/24 13:39 Blood Pressure 109/65 10/22/24 13:39 Pulse Oximetry 100 10/22/24 13:39 Oxygen Delivery Me thod Room Air 10/22/24 13:39 MDM - URI/Sore Throat Medical Decision Making Patient here for flu like symptoms. He has 2 children both positive for influenza A. He arrives febrile. He had a concern for possible pneumonia thus CXR was obtained and normal. Pending results of his COVID/influenza/RSV. Care transferred to Ashok Cruz PA-C. Positive for flu A, symptoms began within the past 48 hours so we will start on Tamiflu. Encouraged him to follow-up working with primary care return with any worsening breathing or other concerns. Lab Data Radiology Impressions Chest X-Ray 10/22/24 16:30 IMPRESSION: No acute findings. Laboratory Results Influenza A (PCR) Positive (Negative) 10/22/24 16:00 Influenza Type B (PCR) Negative (Negative) 10/22/24 16:00 RSV (PCR) Negative (Negative) 10/22/24 16:00 SARS-CoV-2 (PCR) Negative (Negative) 10/22/24 16:00 Discharge Plan Discharge Patient Disposition: Home Clinical Impression: Influenza Condition: Stable Prescriptions: New oseltamivir [Tamiflu] 75 mg capsule 75 mg PO BID 5 Days Qty: 10 0RF Discharge Orders: Discharge ED (Routine); Ordered 10/22/24 Ordered By: Bartolo Cruz Referrals: Lainey Kunz FNP [Primary Care Provider] - Patient Instructions: Influenza (ED) Activity Restrictions/Additional Instructions: Tamiflu as prescribed. Ibuprofen and Tylenol for fevers or bodyaches. Make sure that you are drinking plenty of fluids. Contact precaution as you have been diagnosed with influenza A. Please follow-up routinely with primary care and return with any worsening of breathing or other concerns. Print Language: Salvadorean Sign Out Sign Out Data: Patient Sign Out occurred on 10/22/24 at 17:11. Patient's care was discussed, and care was transferred from BENITO Parker to BENITO Burns. Coding Level of Care Code ED Accountant Machine Processing for Dana Arizmendi
--- NOTE | 2024-10-22 16:30 | XRR_ITS ---
PROCEDURE INFORMATION: Exam: XR Chest Exam date and time: 10/22/2024 4:34 PM Age: 29 years old Clinical indication: Cough and fever; Additional info: Cough/congestion/fevers TECHNIQUE: Imaging protocol: Radiologic exam of the chest. Views: 1 view. COMPARISON: CR XR chest 1V portable [id number] 05/07/2024 1:12 PM FINDINGS: Lungs: Unremarkable. No consolidation. Pleural spaces: Unremarkable. No pleural effusion. No pneumothorax. Heart/Mediastinum: Unremarkable. No cardiomegaly. Bones/joints: Unremarkable. XR/XR chest 1V portable [id number] IMPRESSION: No acute findings.
[2024-10-22] MEDS: ibuprofen 800 mg tablet PO (16:53)
[2024-10-22 17:17] LABS: Influenza A POSITIVE (Negative); Influenza B NEGATIVE (Negative); Respiratory Syncytial Virus Ce NEGATIVE (Negative); SARS-CoV-2 PCR NEGATIVE (Negative)
[2024-10-22 17:59] VITALS: BP 110/63; PULSE 126; RESP 16; O2SAT 93
== END 2024-10-22 18:00 | disposition home or self-care (01) ==
PROVIDERS: Physician Assistant; Emergency Provider Physician Assistant; PCP Nurse Practitioner Family
DX: J10.1 Influenza due to other identified influenza virus with other respiratory manifestations (principal); Z11.52 Encounter for screening for COVID-19
CPT/HCPCS: 71045; 87637; 93005; 99284

== ENCOUNTER 2025-06-17 13:05 | Emergency (ER) | payer SELFPAY ==
[2025-06-17 13:15] VITALS: BP 169/81; PULSE 93; RESP 14; TEMP 36.8; O2SAT 99
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
--- OUTSIDE RECORDS SUMMARY | 2025-06-17 13:28 | XMS_ITS | Clinical Summary ---
Author Organization [employer] Address [address] Araujo: [place] [address] [place] [address] Care Team Providers Care Pocketbook Maker Name Role Phone Coco De Leon MD Primary Care Provider [phone]- [phone] Allergies No known active allergies Medications HYDROcodone-scottie taminophen (NORCO) 7.5-325 mg TabletIndicatio ns:Urinary retention Take 1 Tablet by mouth every 6 hours as needed for Pain, Moderate. Max Daily Amount: 4 Tablets 10 Tablet 01/22/2022 12:44 PM CDT 01/21/2022 Active phenazopyridine 100 mg tablet TAKE 1 TABLET BY MOUTH EVERY 8 HOURS NEEDED FOR bladder SPASMS 01/20/2022 Active pantoprazole (PROTONIX) 40 mg Tablet, Delayed Release (E.C.) Take 1 Tablet (40 mg) by mouth daily. 30 Tablet 02/03/2022 Active dicyclomine (BENTYL) 20 mg tablet Take 1 Tablet (20 mg) by mouth every 8 hours as needed for Other (See Comment) (Abdominal cramping). 15 Tablet 02/03/2022 Active Active Problems Problem Noted Date Diagnosed Date Stricture of bulbous urethra in male 01/22/2022 Acute urinary retention 01/21/2022 Immunizations Immunization Administration Dates Next Due (ADACEL/BOOSTRIX)(10 YR UP) TDAP VACCINE, 0.5ML, IM 04/16/2010 Meningococcal A Conjugate Vaccine IM 04/16/2010 Family History Medical History Relation Name Comments Colon Cancer Neg Hx Social History Tobacco Use Types Packs/Day Years Used Date Smoking Tobacco: Never Smokeless Tobacco: Never Tobacco Cessation:Counseling Given: No Alcohol Use Standard Drinks/Week Comments Not Currently 0 (1 standard drink = 0.6 oz pur e alcohol) Sex and Gender Information Value Date Recorded Sex Assigned at Not on file 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 Gender Identity Not on file Sexual Orientation Not on file Last Filed Vital Signs Vital Sign Reading Time Taken Comments Blood Pressure 108/57 02/11/2022 4:28 PM CDT Pulse 72 02/11/2022 4:28 PM CDT Temperature 36.6 C (97.8 F) 02/03/2022 3:08 PM CDT Respiratory Rate 12 02/11/2022 4:28 PM CDT Oxygen Saturation 97% 02/11/2022 4:28 PM CDT Inhaled Oxygen Concentration - - Weight 84.8 kg (187 lb) 02/10/2022 9:24 AM CDT Height 172.7 cm (5' 8 ) 02/10/2022 9:24 AM CDT Body Mass Index 28.43 02/10/2022 9:24 AM CDT Plan of Treatment Health Maintenance Due Date Last Done Comments HEPATITIS B VACCINES (1 of 3 - 19+ 3-dose series) 01/04 DTAP/TDAP/TD VACCINES (2 - Td or Tdap) 04/16/2020 HPV VACCINES (1 - 3-dose SCDM series) 01/26/2024 INFLUENZA VACCINE (#1) 2025 01/27/2022 Insurance RX [employer] RX Member Subscriber Plan / Payer (Ef fective 2022-Present) Name:Liam Hartman Relation to Subscriber:Self Name:Liam Hartman Payer ID:Not on file Group ID:[id number] Type:RX Commercial Address: [place], [place] [address] [address] [address] [facility] OPTIONS PPO [id number] Advance Directives For more information, please contact: [phone] * Full Code (Latest Code Status on File) Date Activated Date Inactivated Comments 02/11/2022 2:43 PM 02/11/2022 6:42 PM * Full Code Date Activated Date Inactivated Comments 01/21/2022 5:19 AM 01/22/2022 1:38 PM * Full Code Date Activated Date Inactivated Comments 01/21/2022 4:58 AM 01/21/2022 5:19 AM Care Teams Pocketbook Maker Relationship Specialty Start Date End Date Coco De Leon MD [address] [id number] PCP - General Internal Medicine 02/03/22
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
--- NOTE | 2025-06-18 16:09 | PC.NURSE ---
Ortho referral sent.
== END 2025-06-17 14:41 | disposition home or self-care (01) ==
PROVIDERS: Emergency Provider Physician Assistant; PCP Nurse Practitioner Family
DX: S62.324A Displaced fracture of shaft of fourth metacarpal bone, right hand, initial encounter for closed fracture (principal); W50.0XXA Accidental hit or strike by another person, initial encounter
CPT/HCPCS: 73130; 99283; J9999

== ENCOUNTER → 2025-06-20 14:28 | Outpatient (BNVA) | payer SELFPAY | PROVIDERS: PCP Nurse Practitioner Family; Visit Provider Orthopaedic Surgery | DX: Z01.818 Encounter for other preprocedural examination (principal); S62.324A Displaced fracture of shaft of fourth metacarpal bone, right hand, initial encounter for closed fracture; X58.XXXA Exposure to other specified factors, initial encounter | CPT/HCPCS: 36415; 73130; 80053; 81001; 85025 ==

== ENCOUNTER 2025-06-24 13:04 | Day surgery (SDC) | payer SELFPAY ==
[2025-06-24] VITALS (14 sets, daily range): BP systolic 92–143; BP diastolic 61–94; PULSE 59–117; RESP 10–20; TEMP 36.5–37; O2SAT 96–100; BMI 31.3
--- NOTE | 2025-06-24 13:53 | W.PM.OPSUD ---
Surgery/Procedure H&P Update DATE OF PROCEDURE: June 24, 2025 DATE H&P PERFORMED: 06/20/25 H&P UPDATE INFORMATION: I have reviewed H&P completed within last 30 days, I have examined patient prior to procedure and No changes to prior documentation PREOP DIAGNOSIS: Fourth metacarpal fracture on the right PLANNED PROCEDURE: Operation Date: 06/24/25 14:50 Proposed Procedures p Percutaneous Pinning RIGHT Fourth Metacarpal Fracture(Right) - Hernan Desir DO
[2025-06-24] MEDS: ceFAZolin 2,000 mg SDV 2000 MG IVP (14:15)
--- NOTE | 2025-06-24 14:55 | PM.OP ---
Operative Report Date of procedure: June 24, 2025 Pre-op diagnosis: Fourth metacarpal fracture on the right. Post-op diagnosis: same Post-op findings: Closed reduction percutaneous pinning of right fourth metacarpal Surgeon: Hernan Desir DO Estimated blood loss (mL): 5 Procedure: Closed reduction percutaneous pinning of right fourth metacarpal Patient is brought to the operative suite after undergoing anesthesia was placed in the supine position. All areas impingement were well-padded. Patient's prepped and draped normal sterile fashion. A K wire was used to shoehorn the fracture reduced. This was done by placing the K wire into the fracture and reducing the proximal and to the distal end. A K wire was then placed from the fifth metacarpal into the fourth metacarpal distally. And another 1 placed proximally. AP and lateral fluoroscopy ensured the fracture and hardware in good position. Wounds were irrigated and pins were cut Jurgan balls were placed patient was placed in a volar splint and transferred to the PACU in stable condition.
[2025-06-24] MEDS: fentaNYL 50 mcg/mL INJ 2mL IVP (15:16)
--- NOTE | 2025-06-24 15:36 | P.ANESASSM_ITS ---
Pre-Anesthetic Assessment Height/Weight: Height 5 ft 7 in Weight 200 lb Temp Pulse Resp BP Pulse Ox O2 Del Method O2 Flow Rate 98.6 F 68 16 124/61 100 Room Air 8 06/24/25 13:23 06/24/25 15:32 06/24/25 15:32 06/24/25 15:32 06/24/25 15:32 06/24/25 15:32 06/24/25 15:07 Preop Diagnosis: Fourth metacarpal fracture on the right Operation Date: 06/24/25 14:50 Proposed Procedures p Percutaneous Pinning RIGHT Fourth Metacarpal Fracture(Right) - Hernan Desir, DO Was Beta Savi taken within 24 hours: N/A Was Clonidine taken within 24 hours: N/A Last intake: Intake Last Liquid Date 06/23/25 Last Liquid Time 21:00 Last Solid Date 06/23/25 Last Solid Time 21:00 Social No alcohol and No tobacco Exam alert, oriented x 3, clear to auscultation bilaterally and regular rate & rhythm Airway Submandibular: within normal limits Cervical ROM: within normal limits Mallampati: Class II Dentition: full Anesthetic Plan ASA status: 1 Anesthesia: General Other: No prior issues with anesthesia NPO since yesterday evening Denies any history of cardiac or pulmonary issues METs greater than 4 Plan for general anesthesia Medications/Allergies Home Medications ?Medication ?Instructions ?Recorded ?Confirmed ?Last Taken ?Type ulnar gutter splint #1 ea 06/20/25 06/20/25 Unkn own Rx hydrocodone 5 mg-acetaminophen 325 1 tab PO Q6H PRN pa in 7 days #28 06/24/25 Unknown Rx mg tablet tabs Allergies Allergy/AdvReac Type Severity Reaction Status Date / Time No Known Allergies Allergy Verified 06/20/25 08:07 Current Medications Generic Name Dose Route Start Last Admin Trade Name Freq PRN Reason Stop Dose Admin Fentanyl 50 mcg 06/24/25 14:47 06/24/25 15:16 Fentanyl 50 Mcg/Ml Inj 2ml IVP 06/25/25 14:47 50 mcg Q5M PRN Administration Pain level 6-10 PACU Phase I Sodium Chloride 1,000 mls @ 30 mls/hr 06/24/25 13:30 06/24/25 13:34 Sodium Chloride 0.9% IV 06/25/25 13:29 30 mls/hr .Q24H MARTHA Administration PFSH Anesthesia Medical History No pertinent past medical history Social History Smoking and tobacco/nicotine status: never used tobacco/nicotine Second hand smoke exposure: No Alcohol intake: never Substance/Drug Use: never
[2025-06-24] MEDS: HYDROcodone-acetaminophen 5-325 mg Tablet 1 TAB PO (16:25)
--- NOTE | 2025-06-24 16:35 | ANE.PACU2 ---
Inpatient post-anesthesia follow up: Airway intact: Yes Vital signs: Temperature 98.0 F Pulse Rate 60 Respiratory Rate 14 Blood Pressure 129/74 Pulse Oximetry 100 Oxygen Delivery Me thod Room Air Oxygen Flow Rate 8 Fraction of Inspir ed Oxygen Hydration adequate: Yes Nausea and vomiting: No Pain level: 1 Mental status: Baseline
== END 2025-06-24 16:35 | disposition home or self-care (01) ==
PROVIDERS: PCP Nurse Practitioner Family; Visit Provider Orthopaedic Surgery
PROC: (CPT 26605; principal; 2025-06-24 14:40)
DX: S62.304A Unspecified fracture of fourth metacarpal bone, right hand, initial encounter for closed fracture (principal); X58.XXXA Exposure to other specified factors, initial encounter
CPT/HCPCS: 26605; 73120; 76000; C1713; J0690; J2250; J2405; J2704; J3010; J7030; J9999

== ENCOUNTER 2025-07-06 05:00 | Outpatient (CLI) | payer SELFPAY | END 2025-07-06 05:01 | disposition home or self-care (01) | LOC: SPT 07-16 16:24 | PROVIDERS: Visit Provider Orthopaedic Surgery | DX: S62.304A Unspecified fracture of fourth metacarpal bone, right hand, initial encounter for closed fracture (principal); X58.XXXA Exposure to other specified factors, initial encounter | CPT/HCPCS: L3984 ==

== ENCOUNTER → 2025-07-09 15:42 | Outpatient (BNVA) | payer SELFPAY | PROVIDERS: PCP Nurse Practitioner Family; Visit Provider Orthopaedic Surgery | DX: Z98.890 Other specified postprocedural states (principal) | CPT/HCPCS: 73130 ==

== ENCOUNTER 2025-08-01 22:29 | Emergency (ER) | payer SELFPAY ==
--- NOTE | 2025-08-01 22:32 | XRR_ITS ---
PROCEDURE INFORMATION: Exam: XR Right Hand Exam date and time: 08/01/2025 10:44 PM Age: 30 years old Clinical indication: Pain; Hand; Right; Prior surgery; Surgery date: <1 month; Surgery type: 4th metacarpal fracture, pins currently in place; Additional info: Known fracture, pain/numbness TECHNIQUE: Imaging protocol: Radiologic exam of the right hand. Views: 3 or more views. COMPARISON: No relevant prior studies available. FINDINGS: Bones/joints: K-wire fixation of the 4th metacarpal. Underlying 4th metacarpal fracture is nonunited. Recommend follow-up radiographs to evaluate for continued healing. Soft tissues: Normal. XR/XR hand RT min 3V* [id number] IMPRESSION: K-wire fixation of the 4th metacarpal. Underlying 4th metacarpal fracture is nonunited. Recommend follow-up radiographs to evaluate for continued healing.
--- OUTSIDE RECORDS SUMMARY | 2025-08-01 22:32 | XMS_ITS | Clinical Summary ---
Author Organization [facility] Address [address] Araujo: [place] [place] [address] Care Team Providers Care Collar Feller Name Role Phone Coco De Leon MD Primary Care Provider [phone]- [phone] Allergies No known active allergies Medications HYDROcodone-scottie [...] on file Legal Sex Male 12:42 PM [employer] Gender Identity Not on file Sexual Orientation [...] on file Group ID:[id number] Type:RX Commercial Address: [place], [place] [facility] OPTIONS PPO [id number] Advance Directives For more information, please contact: [phone] * Full Code (Latest Code Status on File) Date Activated Date Inactivated Comments 02/11/2022 2:43 PM 02/11/2022 6:42 PM * Full Code Date Activated Date Inactivated Comments 01/21/2022 5:19 AM 01/22/2022 1:38 PM * Full Code Date Activated Date Inactivated Comments 01/21/2022 4:58 AM 01/21/2022 5:19 AM Care Teams Collar Feller Relationship Specialty Start Date End Date Coco De Leon MD [address] [place] [address] PCP - General Internal Medicine 02/03/22
[2025-08-01 22:35] VITALS: BP 144/94; PULSE 138; RESP 18; TEMP 38.1; O2SAT 99; BMI 29.7
[2025-08-01 22:49] VITALS: BP 122/71; PULSE 124; RESP 17; O2SAT 98
--- NOTE | 2025-08-01 22:54 | XRR_ITS ---
PROCEDURE INFORMATION: Exam: XR Chest Exam date and time: 08/01/2025 10:49 PM Age: 30 years old Clinical indication: Other: Tachycardic, febrile TECHNIQUE: Imaging protocol: Radiologic exam of the chest. Views: 1 view. COMPARISON: CR XR chest 1V portable [id number] 10/22/2024 4:34 PM FINDINGS: Lungs: Unremarkable. No consolidation. Pleural spaces: Unremarkable. No pleural effusion. No pneumothorax. Heart/Mediastinum: Unremarkable. No cardiomegaly. Bones/joints: Unremarkable. XR/XR chest 1V portable [id number] IMPRESSION: No acute findings.
--- NOTE | 2025-08-01 22:55 | CTR_ITS ---
PROCEDURE INFORMATION: Exam: CT Head Without Contrast Exam date and time: 08/01/2025 11:03 PM Age: 30 years old Clinical indication: Pain; Headache TECHNIQUE: Imaging protocol: Computed tomography of the head without contrast. Radiation optimization: All CT scans at this facility use at least one of these dose optimization techniques: automated exposure control; mA and/or kV adjustment per patient size (includes targeted exams where dose is matched to clinical indication); or iterative reconstruction. COMPARISON: CT head wo con* [id number] 05/07/2024 1:05 PM RADIATION DOSE METRICS: Total DLP (mGy-cm): 1137.48 FINDINGS: Brain: Normal. No hemorrhage. Unremarkable white matter. No mass effect. Cerebral ventricles: No ventriculomegaly. Paranasal sinuses: Visualized sinuses are unremarkable. No fluid levels. Mastoid air cells: Visualized mastoid air cells are well aerated. Bones: Unremarkable. No acute fracture. Soft tissues: Unremarkable. CT/CT head wo con* [id number] IMPRESSION: No acute intracranial abnormality.
--- NOTE | 2025-08-01 22:55 | ECG_ITS ---
[facility]: [facility] Pat Name: Liam Hartman Department: Room: Gender: Male Cmo & President: : 1995 Requested By: Marlin Nieves Order Number: [id number] Rice MD: Hao Neal M.D. Measurements Intervals [place] Rate: 113 P: 65 ME: 169 QRS: 76 QRSD: 112 T: 30 QT: 319 QTc: 438 Interpretive Statements SINUS TACHYCARDIA LOW QRS VOLTAGE IN PRECORDIAL LEADS [QRS DEFLECTION < 1.0 mV IN CHEST LEADS] Compared to ECG 10/22/2024 13:41:55 Low QRS voltage now present NO SIGNIFICANT CHANGE Electronically Signed On 08-03-2025 17:49:19 RESUME WRITER by Hao Neal M.D. [email or web address]
--- NOTE | 2025-08-01 23:23 | W.ED.GENADLT ---
HPI - General Adult General: Chief complaint: Headache Stated complaint: broken hand numbness, severe pain popped. Time Seen by Provider: 08/01/25 22:37 Source: patient Mode of arrival: ambulatory Limitations: no limitations History of Present Illness: Patient is a 30-year-old male presents to ED today with multiple complaints. His first complaint is pain to his right hand. Patient fractured his fourth metacarpal over a month ago and subsequently underwent surgery by Dr. Desir. He states he has pins in his hand that are scheduled to be removed upon his next visit. Patient states over the past several days he has heard of multiple pops in the hand and is complaining of severe pain. He has not noticed any swelling or color/temperature changes. Denies numbness, tingling, loss of sensation. His other complaint is a headache that developed today. States he feels dizzy as well. No known history of migraines although significant other states he has been having days of waxing and waning headaches for a while now. Denies nausea/vomiting. States his headache is worse with light. No known fevers but was found to have a low grade fever of 100.6 upon arrival. States his daughter is sick/fever yesterday and son woke up today with cough. He is also tachycardic. Denies drug use. No complaints of neck pain/stiff neck. Onset (ago): day(s) Location: head Severity: severe Severity scale (1-10): >10 Pain Consistency: constant Associated symptoms: Reports headache(s); Deny chest pain, confusion, dyspnea, malaise, nausea, rash, palpitations, syncope or vomiting Treatments prior to arrival: none Related Data Previous Rx's ?Medication ?Instructions ?Recorded ulnar gutter splint #1 ea 06/20/25 hydrocodone 5 mg-acetaminophen 325 1 tab PO Q6H PRN pain 7 days #28 06/24/25 mg tablet tabs Ulnar Gutter Splint, right #1 ea 07/09/25 Allergies Allergy/AdvReac Type Severity Reaction Status Date / Time No Known Allergies Allergy Verified 07/09/25 16:21 Review of Systems Const: Reports: chills; Denies: fever(s), body aches, fatigue or malaise Eyes: Reports: photophobia; Denies: change in vision, blurry vision, floaters or seeing flashes ENMT: Denies: throat pain, odynophagia, ear or mastoid pain, nasal discharge, nasal congestion or sinus pain Card: Denies: chest pain, palpitations, edema, syncope or pre-syncope Resp: Denies: dyspnea, productive cough, non-productive cough or chest congestion GI: Denies: abdominal pain, nausea, vomiting or diarrhea : Denies: flank pain, dysuria or hematuria Musc: Reports: extremity pain (R hand); Denies: neck pain, back pain or extremity swelling Skin/Breast: Denies: rash Neuro: Reports: headache(s) and dizziness; Denies: numbness in extremities, weakness in extremities, sensory changes, lack of coordination, difficulty walking, frequent falls, confusion, behavioral changes, Slurred speech present, difficulty communicating thoughts or seizure-like activity PFSH ED PFSH: Medical History No pertinent past medical history Social History Smoking and tobacco/nicotine status: never used tobacco/nicotine Second hand smoke exposure: No Alcohol intake: never Substance/Drug Use: never Physical Exam Const: COMMON NORMALS: average body habitus, patient oriented x3, no limitations, healthy appearing, alert and well nourished GENERAL APPEARANCE: cooperative and in distress (appears uncomfortable secondary to pain) ORIENTATION/CONSCIOUSNESS: Yes awake, Yes oriented to person, Yes oriented to place and Yes oriented to time HENMT: COMMON NORMALS: normocephalic and atraumatic HEAD & SCALP: normal to inspection, normocephalic and atraumatic FACE & SINUS: normal facial exam and face symmetric Eye: COMMON NORMALS: Equal, round and reactive pupils present and EOMs intact bilaterally GENERAL EYE: appearance normal, both eyes and all related structures and normal light reflex PUPIL: Yes Equal, round and reactive pupils present DIRECT OPHTHALMOSCOPY: Yes normal light reflex Neck/C-Spine: COMMON NORMALS: full ROM, no lymphadenopathy and no meningeal signs Resp: COMMON NORMALS: normal respiratory effort and clear to auscultation bilaterally AUSCULTATION: clear to auscultation bilaterally Cardio: COMMON NORMALS: regular rhythm RATE: tachycardic RHYTHM: regular rhythm GI: COMMON NORMALS: Normal to inspection, nondistended, normoactive bowel sounds present, Soft to palpation and non-tender PALPATION: Yes Soft to palpation Back/Pelvis: COMMON NORMALS: thoracic and lumbar spine normal to inspection and no thoracic nor lumbar tenderness Extremity: GENERAL: Yes normal exam except as noted RIGHT UPPER EXTREMITY: Yes hand & digits (no edema/erythema/warmth/streaking) Right hand and digits: Yes neurovascular exam (normal) Neuro: GAYLE COMA SCALE: document GCS findings [place] coma scale eye opening: Spontaneous [place] coma scale verbal response: Orientated Gay[place] coma scale motor response: Obey commands [place] coma scale total score: 15 COMMON NORMALS: patient oriented x3, CN's II-XII intact bilaterally, moves all extremities, no focal motor deficits and no sensory deficits noted SENSORIUM/ORIENTATION: Yes alert, Yes oriented to person, Yes oriented to place and Yes oriented to time MENINGEAL SIGNS: Yes no meningeal signs Skin: COMMON NORMALS: no rashes or lesions noted GENERAL SKIN EXAM: no rashes or lesions noted Course Vital Signs: Vital signs: Vital Signs Temperature 100.6 F H 08/01/25 22:35 Pulse Rate 113 H 08/02/25 00:58 Respiratory Rate 17 08/02/25 00:58 Blood Pressure 125/76 08/02/25 00:58 Pulse Oximetry 95 08/02/25 00:58 Oxygen Delivery Me thod Room Air 08/01/25 22:35 MDM - General Adult Medical Decision Making XR of the right hand obtained showing a known nonunited fourth metacarpal fracture with intact pins. Plan will be for him to continue with his orthopedic surgeon for continued healing. CT scan of his head was unremarkable. Workup for his fever and tachycardia including CXR, CBC, CMP, CRP, lactic, UDS, COVID/flu/RSV. Patient has a normal white count and normal lactic. Minor elevation to his CRP at 15. He was given IV fluids, Toradol, Dexamethasone, Benadryl as well as PO Tylenol here in the ED. I would have a low suspicion for meningitis based on clinical exam as he does not have symptoms consistent with meningeal irritation. No IV drug use. Low suspicion for discitis, epidural abscess, intracranial abscess. Suspect this could be viral given his low-grade fevers and sick contacts with his children. Significant other states he has also been having intermittent headaches so could be migraine. Patient will be allowed home with recommendations to follow-up with primary care. Return to ED precautions discussed. Medical Records I reviewed the patient's medical records. Lab Data I reviewed the patient's lab results. 08/01/25 23:23 08/01/25 23:23 Radiology Impressions Hand X-Ray 08/01/25 22:32 IMPRESSION: K-wire fixation of the 4th metacarpal. Underlying 4th metacarpal fracture is nonunited. Recommend follow-up radiographs to evaluate for continued healing. Chest X-Ray 08/01/25 22:54 IMPRESSION: No acute findings. Head CT 08/01/25 22:55 IMPRESSION: No acute intracranial abnormality. Laboratory Results WBC 7.00 10^3/uL (3.29-11.43) 08/01/25 23:23 RBC 5.15 10^6/uL (3.85-5.65) 08/01/25 23:23 Hgb 16.00 g/dL (11.27-16.99) 08/01/25 23:23 Hct 46.4 % (37-53) 08/01/25 23:23 MCV 90.1 fl (82-101) 08/01/25 23:23 MCH 31.1 pg (27-33) 08/01/25 23:23 MCHC 34.5 g/dL (30-55) 08/01/25 23:23 RDW 12.0 % (12.1-15.1) L 08/01/25 23:23 Plt Count 279 10^3/cmm (157-399) 08/01/25 23:23 MPV 9.7 fL (7.4-10.4) 08/01/25 23:23 Neut % (Auto) 81.4 % 08/01/25 23:23 Lymph % (Auto) 9.1 % 08/01/25 23:23 [place] % (Auto) 8.7 % 08/01/25 23:23 Eos % (Auto) 0.1 % 08/01/25 23:23 Baso % (Auto) 0.6 % 08/01/25 23:23 Neut # (Auto) 5.69 10^3/uL (1.8-7.7) 08/01/25 23:23 Lymph # (Auto) 0.6 10^3/uL (0.8-4.8) L 08/01/25 23:23 [place] # (Auto) 0.6 10^3/uL (0.2-0.9) 08/01/25 23:23 Eos # (Auto) 0.0 10^3/uL (0.0-0.8) 08/01/25 23:23 Baso # (Auto) 0.0 10^3/uL (0.0-0.1) 08/01/25 23:23 Nucleated RBC % (auto) 0 % 08/01/25 23:23 Nucleated RBCs # 0.0 /100WBC 08/01/25 23:23 Sodium 137 mmol/L (136-145) 08/01/25 23:23 Potassium 3.8 mmol/L (3.5-5.1) 08/01/25 23:23 Chloride 102 mmol/L (98-107) 08/01/25 23:23 Carbon Dioxide 25 mmol/L (22-29) 08/01/25 23:23 Anion Gap 13.8 (5-19) 08/01/25 23:23 BUN 11 mg/dL (6-20) 08/01/25 23:23 Creatinine 1.0 mg/dL (0.7-1.2) 08/01/25 23:23 GFR Calculation 89.0 mL/min (90-130) L 08/01/25 23:23 Glucose 116 mg/dL (65-115) H 08/01/25 23:23 Calculated Osmolality 284 mOsm/kg (285-295) L 08/01/25 23:23 Lactic Acid 1.7 mmol/L (0.5-2.2) 08/01/25 23:23 Calcium 9.2 mg/dL (8.5-10.5) 08/01/25 23:23 Total Bilirubin 0.3 mg/dL (0.15-1.2) 08/01/25 23:23 AST 20 U/L (0-40) 08/01/25 23:23 ALT 25 U/L (0-41) 08/01/25 23:23 Alkaline Phosphatase 88 U/L (40-130) 08/01/25 23:23 C-Reactive Protein 15.0 mg/L (0.0-4.9) H 08/01/25 23:23 Total Protein 7.1 g/dL (6.6-8.7) 08/01/25 23:23 Albumin 4.4 g/dL (3.5-5.2) 08/01/25 23:23 Globulin 2.7 g/dL (1.3-4.6) 08/01/25 23:23 Urine Opiates Screen Negative ng/mL (Negative) 08/01/25 23:27 Ur Barbiturates Screen Negative ng/mL (Negative) 08/01/25 23:27 Ur Phencyclidine Scrn Negative ng/mL (Negative) 08/01/25 23:27 Ur Amphetamines Screen Negative ng/mL (Negative) 08/01/25 23:27 U Benzodiazepines Scrn Negative ng/mL (Negative) 08/01/25 23:27 Urine Cocaine Screen Negative ng/mL (Negative) 08/01/25 23:27 U Marijuana (THC) Screen Negative ng/mL (Negative) 08/01/25 23:27 Influenza A (PCR) Negative (Negative) 08/01/25 23:41 Influenza Type B (PCR) Negative (Negative) 08/01/25 23:41 RSV (PCR) Negative (Negative) 08/01/25 23:41 SARS-CoV-2 (PCR) Negative (Negative) 08/01/25 23:41 All radiology interpretation(s) finalized by discharge Discharge Plan Discharge Patient Disposition: Home Clinical Impression: Metacarpal bone fracture Qualifiers: Encounter type: subsequent encounter Metacarpal bone: fourth Fracture type: closed Metacarpal location: shaft Fracture alignment: nondisplaced Laterality: right Fracture healing: with nonunion Qualified Code(s): S62.354K - Nondisplaced fracture of shaft of fourth metacarpal bone, right hand, subsequent encounter for fracture with nonunion Headache Qualifiers: Headache type: unspecified Headache chronicity pattern: acute headache Intractability: not intractable Qualified Code(s): R51.9 - Headache, unspecified Condition: Stable Prescriptions: No Action (DME) Ulnar Gutter Splint, right See Rx Instructions .Route .MEDSUPPLY Qty: 1 0RF Rx Instructions: As directed (DME) ulnar gutter splint See Rx Instructions .Route .MEDSUPPLY Qty: 1 0RF Rx Instructions: As directed hydrocodone-acetaminophen 5-325 mg tablet 1 tab PO Q6H PRN (Reason: pain) 7 Days Qty: 28 0RF Discharge Orders: Discharge ED (Routine); Ordered 08/02/25 Ordered By: Marlin Nieves Patient Instructions: Headache - Migraine (Adult), Acute Headache (DC), General Headache (ED), Patient Portal & [place] Instructions Activity Restrictions/Additional Instructions: Plan to follow-up with Dr. Desir as scheduled for further evaluation of your metacarpal fracture. You may follow-up with primary care for treatment of continued headaches. You may return to the emergency department for onset of severe or constant headache, severe neck pain/stiffness, continued fevers, generally feeling worse or unwell, or any other concerns you may have. Stand Alone Forms: Work/School Release Print Language: Mauritanian Coding Level of Care Code ED [employer] Internship for Dana Arizmendi
[2025-08-01 23:33] LABS: Hematocrit 46.4 % (37-53); Hemoglobin 16.00 g/dL (11.27-16.99); Mean Corpuscular HGB Conc 34.5 g/dL (30-55); Mean Corpuscular Hemoglobin 31.1 pg (27-33); Mean Corpuscular Volume 90.1 fl (82-101); Nucleated Red Blood Cells % 0 %; Platelet Count 279 10^3/cmm (157-399); Red Blood Count 5.15 10^6/uL (3.85-5.65); White Blood Count 7.00 10^3/uL (3.29-11.43)
[2025-08-01 23:41] LABS: PCP Screen Urine Negative (Negative)
[2025-08-01 23:54] VITALS: PULSE 121; RESP 18; O2SAT 98
[2025-08-01 23:55] LABS: Alanine Aminotransferase 25 U/L (0-41); Albumin Level 4.4 g/dL (3.5-5.2); Alkaline Phosphatase 88 U/L (40-130); Anion Gap 13.8 (5-19); Aspartate Amino Transferase 20 U/L (0-40); Blood Urea Nitrogen 11 mg/dL (6-20); Calcium 9.2 mg/dL (8.5-10.5); Carbon Dioxide 25 mmol/L (22-29); Chloride 102 mmol/L (98-107); Globulin 2.7 g/dL (1.3-4.6); Glucose 116 mg/dL (65-115); Osmolality Calculated 284 mOsm/kg (285-295); Potassium 3.8 mmol/L (3.5-5.1); Sodium 137 mmol/L (136-145); Total Protein 7.1 g/dL (6.6-8.7)
[2025-08-01 23:56] VITALS: BP 122/71; PULSE 116; RESP 18; O2SAT 99
[2025-08-01 23:56] LABS: Lactic Sepsis W/Reflex 1.7 mmol/L (0.5-2.2)
[2025-08-02 00:04] VITALS: BP 128/79; PULSE 120; RESP 17; O2SAT 98
[2025-08-02 00:33] LABS: Respiratory Syncytial Virus Ce NEGATIVE (Negative); SARS-CoV-2 PCR NEGATIVE (Negative)
[2025-08-02] MEDS: diphenhydrAMINE 50 mg/mL SDV 1mL IVP (00:45)
[2025-08-02 00:48] VITALS: BP 125/76; PULSE 109; RESP 18; O2SAT 94
[2025-08-02 00:58] VITALS: BP 125/76; PULSE 113; RESP 17; O2SAT 95
== END 2025-08-02 01:00 | disposition home or self-care (01) ==
PROVIDERS: Emergency Provider Physician Assistant
DX: S62.354K Nondisplaced fracture of shaft of fourth metacarpal bone, right hand, subsequent encounter for fracture with nonunion (principal); R51.9 Headache, unspecified; X58.XXXD Exposure to other specified factors, subsequent encounter; Z11.52 Encounter for screening for COVID-19
CPT/HCPCS: 70450; 71045; 73130; 80053; 80306; 83605; 85025; 86140; 87637; 93005; 96374; 96375; 99285; J1100; J1200; J1885; J7030; J9999

== ENCOUNTER → 2025-08-06 16:06 | Outpatient (BNVA) | payer SELFPAY | PROVIDERS: Visit Provider Orthopaedic Surgery | DX: Z98.890 Other specified postprocedural states (principal) | CPT/HCPCS: 73130 ==

== ENCOUNTER → 2025-09-03 12:59 | Outpatient (BNVA) | payer SELFPAY | PROVIDERS: Visit Provider Orthopaedic Surgery | DX: S62.354K Nondisplaced fracture of shaft of fourth metacarpal bone, right hand, subsequent encounter for fracture with nonunion (principal); X58.XXXD Exposure to other specified factors, subsequent encounter | CPT/HCPCS: 73130 ==